=== PATIENT | male | born 1965 | race Caucasian/White ===

== ENCOUNTER → 2017-04-20 11:37 | Outpatient (REF) | payer MEDICAID, SELFPAY ==
[2017-04-20 16:00] LABS: Microscopic, Urine URINE MICROSCOPIC (MICROSCOPIC)
[2017-04-20 16:42] LABS: Appearance,Urine CLEAR (Clear); Bilirubin,Urine Negative (Negative); Blood, Urine Negative (Negative); Color,Urine YELLOW (Yellow); Glucose,Urine (UA) Negative (Negative); Ketones,Urine Negative (Negative); Leukocyte Esterase,Urine Negative (Negative); Nitrate,Urine Negative (Negative); PH,Urine 6.5 (5.0-8.5); Protein,Urine Negative (Negative); Urobilinogen,Urine 0.2 EU/dl (0.2)
[2017-04-20 16:56] LABS: Amorphous Sediment,Urine 1+ /lpf; Bacteria,Urine Trace /lpf; RBC,Urine Occasional #/hpf (0-3); WBC,Urine Occasional #/hpf (0-3)
[2017-04-22 12:34] LABS: PSA, Free 0.07 ng/mL; Prostate Specific Ag 0.2 ng/mL (0.0-4.0)
== END ==
LOC: LAB 11:37
PROVIDERS: Visit Provider Emergency Medicine
DX: R35.0 Frequency of micturition (principal)
CPT/HCPCS: 81001; 84153; 84154; 87086; 87088; 87186

== ENCOUNTER → 2017-05-17 09:39 | Outpatient (CLI) | payer MEDICAID, SELFPAY ==
[2017-05-17 11:27] VITALS: PULSE 74; PULSE 79
[2017-05-17 11:28] VITALS: BP 140/82; BP 170/98; PULSE 72; PULSE 86; RESP 18; RESP 26; O2SAT 88; O2SAT 91
== END ==
PROVIDERS: PCP Emergency Medicine; Visit Provider Internal Medicine
DX: J44.9 Chronic obstructive pulmonary disease, unspecified (principal)
CPT/HCPCS: 94060; 94618; 94640; 94726; 94729

== ENCOUNTER → 2017-05-18 10:04 | Outpatient (REF) | payer MEDICAID, SELFPAY ==
[2017-05-18 15:00] LABS: Amphetamine/Metha Screen,Urine Negative ng/mL (<1000); Barbiturates Screen,Urine Negative ng/mL (<200); Benzodiazepines Screen,Urine Negative ng/mL (200); Cannabinoid Screen,Urine Negative ng/mL (<50); Cocaine Screen,Urine Negative ng/g (<300); Methadone Screen,Urine Negative ng/mL (<300); Opiate Screen,Urine Positive ng/mL (<300); Phencyclidine Screen,Urine Negative ng/mL (<25)
== END ==
LOC: LAB 10:04
PROVIDERS: Visit Provider Emergency Medicine
DX: Z79.899 Other long term (current) drug therapy (principal)
CPT/HCPCS: 80305

== ENCOUNTER → 2017-06-16 13:59 | Outpatient (REF) | payer MEDICAID, SELFPAY ==
[2017-06-18 19:27] LABS: Amphetamine/Metha Screen,Urine Negative ng/mL (<1000); Barbiturates Screen,Urine Negative ng/mL (<200); Benzodiazepines Screen,Urine Negative ng/mL (200); Cannabinoid Screen,Urine Negative ng/mL (<50); Cocaine Screen,Urine Negative ng/g (<300); Methadone Screen,Urine Negative ng/mL (<300); Opiate Screen,Urine Positive ng/mL (<300); Phencyclidine Screen,Urine Negative ng/mL (<25)
== END ==
LOC: LAB 13:59
PROVIDERS: Visit Provider Emergency Medicine
DX: Z79.899 Other long term (current) drug therapy (principal)
CPT/HCPCS: 80305

== ENCOUNTER → 2017-06-22 09:48 | Outpatient (POV) | payer MEDICAID, SELFPAY | PROVIDERS: PCP Emergency Medicine; Visit Provider Internal Medicine | DX: Z00.00 Encounter for general adult medical examination without abnormal findings (principal) ==

== ENCOUNTER → 2017-07-16 11:29 | Outpatient (REF) | payer MEDICAID, SELFPAY ==
[2017-07-16 14:15] LABS: Amphetamine/Metha Screen,Urine Negative ng/mL (<1000); Barbiturates Screen,Urine Negative ng/mL (<200); Benzodiazepines Screen,Urine Negative ng/mL (200); Cannabinoid Screen,Urine Negative ng/mL (<50); Cocaine Screen,Urine Negative ng/g (<300); Methadone Screen,Urine Negative ng/mL (<300); Opiate Screen,Urine Positive ng/mL (<300); Phencyclidine Screen,Urine Negative ng/mL (<25)
== END ==
LOC: LAB 11:29
PROVIDERS: Visit Provider Emergency Medicine
DX: Z79.899 Other long term (current) drug therapy (principal)
CPT/HCPCS: 80305

== ENCOUNTER → 2017-07-22 12:51 | Outpatient (CLI) | payer MEDICAID, SELFPAY ==
--- NOTE | 2017-07-22 13:00 | XR_ITS ---
XR foot wt bearing LT 3V HISTORY: Left foot pain ITS.REASON: pain ORDERING PHYSICIAN: Vane Jade DPM PATIENT AGE: 52 years COMPARISON: 10/03/2015 FINDINGS: No fracture or dislocation. No lytic or blastic change. There is normal mineralization.. Mild osteoarthritic changes are present at the first metatarsophalangeal joint. Normal alignment. IMPRESSION: Mild osteoarthritis first metatarsophalangeal joint slightly progressed when compared to the previous exam otherwise negative left foot
--- NOTE | 2017-07-22 13:00 | XR_ITS ---
XR foot wt bearing RT 3V HISTORY: Right foot pain ITS.REASON: pain ORDERING PHYSICIAN: Vane Jade DPM PATIENT AGE: 52 years COMPARISON: 10/03/2015 FINDINGS: There are moderate osteoarthritic changes of the first metatarsophalangeal joint. Hypertrophic changes are present dorsally at the first metatarsophalangeal joint slightly more extensive than when compared to the previous exam. Normal alignment. IMPRESSION: Osteoarthritic changes of the first metatarsophalangeal joint with bony hypertrophic change slightly worse when compared to the previous exam
== END ==
PROVIDERS: Visit Provider Podiatrist
DX: M79.671 Pain in right foot (principal); M79.672 Pain in left foot
CPT/HCPCS: 73630

== ENCOUNTER → 2017-08-13 09:24 | Outpatient (CLI) | payer MEDICAID, SELFPAY ==
[2017-08-13 14:01] LABS: Amphetamine/Metha Screen,Urine Negative ng/mL (<1000); Barbiturates Screen,Urine Negative ng/mL (<200); Benzodiazepines Screen,Urine Negative ng/mL (200); Cannabinoid Screen,Urine Negative ng/mL (<50); Cocaine Screen,Urine Negative ng/g (<300); Methadone Screen,Urine Negative ng/mL (<300); Opiate Screen,Urine Positive ng/mL (<300); Phencyclidine Screen,Urine Negative ng/mL (<25)
== END ==
PROVIDERS: Visit Provider Emergency Medicine
DX: Z79.899 Other long term (current) drug therapy (principal)
CPT/HCPCS: 80305

== ENCOUNTER → 2017-09-13 10:04 | Outpatient (REF) | payer MEDICAID, SELFPAY ==
[2017-09-13 14:18] LABS: Amphetamine/Metha Screen,Urine Negative ng/mL (<1000); Barbiturates Screen,Urine Negative ng/mL (<200); Benzodiazepines Screen,Urine Negative ng/mL (<200); Cannabinoid Screen,Urine Negative ng/mL (<50); Cocaine Screen,Urine Negative ng/mL (<300); Methadone Screen,Urine Negative ng/mL (<300); Opiate Screen,Urine Positive ng/mL (<300); Phencyclidine Screen,Urine Negative ng/mL (<25)
== END ==
LOC: LAB 10:04
PROVIDERS: Visit Provider Emergency Medicine
DX: Z79.899 Other long term (current) drug therapy (principal)
CPT/HCPCS: 80305

== ENCOUNTER → 2017-10-06 09:32 | Outpatient (REF) | payer MEDICAID, SELFPAY ==
[2017-10-06 13:27] LABS: Basophils # 0.1 K/mm3 (0-0.2); Basophils % 0.5 % (0.1-2.0); Eosinophils # 0.2 K/mm3 (0.0-0.4); Eosinophils % 1.7 % (0.1-12.0); Hematocrit 50.9 % (42.0-52.0); Hemoglobin 16.4 g/dL (14.1-18.0); Lymphocytes # 2.8 K/mm3 (0.7-4.5); Lymphocytes % 28.4 K/mm3 (10-50); Mean Corpuscular HGB Conc 32.2 g/dL (31.8-35.4); Mean Corpuscular Volume 99.2 fl (80-94); Mean Platelet Volume 8.2 fl (7.4-10.4); Monocytes # 0.6 K/mm3 (0.1-1.0); Monocytes % 5.9 % (1.7-9.3); Neutrophils # 6.3 K/mm3 (1.8-7.8); Neutrophils % 63.6 % (37.0-80.0); Platelet Count 233 K/mm3 (142-424); Red Blood Count 5.13 M/mm3 (4.60-6.20); Red Cell Distribution Width 15.1 % (11.5-17.5); White Blood Count 9.9 K/mm3 (4.8-10.8)
[2017-10-06 13:35] LABS: Anion Gap 10.4 mEq/L (5-15); Blood Urea Nitrogen 15 mg/dL (7-18); Calcium 8.9 mg/dL (8.5-10.1); Carbon Dioxide 31 mmol/L (21.0-32.0); Chloride 103 mmol/L (98-107); Creatinine,Serum 1.01 mg/dL (0.70-1.30); Estimated Glomerular Filt Rate 78 ml/min (>60); GFR (African American) 95 ML/MIN (>60); Glucose 172 mg/dL (74-106); Potassium 4.4 mmoL/L (3.5-5.1); Sodium 140 mmol/L (136-145)
[2017-10-06 14:03] LABS: Amphetamine/Metha Screen,Urine Negative ng/mL (<1000); Barbiturates Screen,Urine Negative ng/mL (<200); Benzodiazepines Screen,Urine Negative ng/mL (<200); Cannabinoid Screen,Urine Negative ng/mL (<50); Cocaine Screen,Urine Negative ng/mL (<300); Methadone Screen,Urine Negative ng/mL (<300); Opiate Screen,Urine Positive ng/mL (<300); Phencyclidine Screen,Urine Negative ng/mL (<25)
== END ==
LOC: LAB 09:32
PROVIDERS: Visit Provider Emergency Medicine
DX: M54.5 Low back pain (principal); R53.83 Other fatigue; R60.9 Edema, unspecified; Z79.899 Other long term (current) drug therapy
CPT/HCPCS: 80048; 80305; 83880; 85025

== ENCOUNTER → 2017-11-16 09:18 | Outpatient (REF) | payer MEDICAID, SELFPAY ==
[2017-11-16 13:55] LABS: Hemoglobin A1C 6.4 % (0.0-7.0)
[2017-11-16 14:32] LABS: Amphetamine/Metha Screen,Urine Negative ng/mL (<1000); Barbiturates Screen,Urine Negative ng/mL (<200); Benzodiazepines Screen,Urine Negative ng/mL (<200); Cannabinoid Screen,Urine Negative ng/mL (<50); Cocaine Screen,Urine Negative ng/mL (<300); Methadone Screen,Urine Negative ng/mL (<300); Opiate Screen,Urine Negative ng/mL (<300); Phencyclidine Screen,Urine Negative ng/mL (<25)
[2017-11-17 10:24] LABS: Folate 10.7 ng/mL (>3.0); Vitamin B12 249 pg/mL (232-1245)
== END ==
LOC: LAB 09:18
PROVIDERS: Physician Assistant; Visit Provider Emergency Medicine
DX: Z79.899 Other long term (current) drug therapy (principal); R73.9 Hyperglycemia, unspecified; R79.89 Other specified abnormal findings of blood chemistry
CPT/HCPCS: 80305; 82607; 82746; 83036

== ENCOUNTER → 2017-12-15 10:17 | Outpatient (REF) | payer MEDICAID, SELFPAY ==
[2017-12-15 13:48] LABS: Amphetamine/Metha Screen,Urine Negative ng/mL (<1000); Barbiturates Screen,Urine Negative ng/mL (<200); Benzodiazepines Screen,Urine Negative ng/mL (<200); Cannabinoid Screen,Urine Negative ng/mL (<50); Cocaine Screen,Urine Negative ng/mL (<300); Methadone Screen,Urine Negative ng/mL (<300); Opiate Screen,Urine Negative ng/mL (<300); Phencyclidine Screen,Urine Negative ng/mL (<25)
[2017-12-22 07:28] LABS: Opiates Negative ng/mL (Cutoff=100)
== END ==
LOC: LAB 10:17
PROVIDERS: Visit Provider Emergency Medicine
DX: Z79.899 Other long term (current) drug therapy (principal)
CPT/HCPCS: 80305; 80361; G0480

== ENCOUNTER → 2018-01-17 13:47 | Outpatient (CLI) | payer MEDICAID, SELFPAY ==
[2018-01-17 15:50] LABS: Amphetamine/Metha Screen,Urine Negative ng/mL (<1000); Barbiturates Screen,Urine Negative ng/mL (<200); Benzodiazepines Screen,Urine Negative ng/mL (<200); Cannabinoid Screen,Urine Negative ng/mL (<50); Cocaine Screen,Urine Negative ng/mL (<300); Methadone Screen,Urine Negative ng/mL (<300); Opiate Screen,Urine Positive ng/mL (<300); Phencyclidine Screen,Urine Negative ng/mL (<25)
== END ==
PROVIDERS: Visit Provider Emergency Medicine
DX: Z79.899 Other long term (current) drug therapy (principal)
CPT/HCPCS: 80305

== ENCOUNTER → 2018-02-15 13:21 | Outpatient (CLI) | payer MEDICAID, SELFPAY ==
[2018-02-15 14:25] LABS: Amphetamine/Metha Screen,Urine Negative ng/mL (<1000); Barbiturates Screen,Urine Negative ng/mL (<200); Benzodiazepines Screen,Urine Negative ng/mL (<200); Cannabinoid Screen,Urine Negative ng/mL (<50); Cocaine Screen,Urine Negative ng/mL (<300); Methadone Screen,Urine Negative ng/mL (<300); Opiate Screen,Urine Positive ng/mL (<300); Phencyclidine Screen,Urine Negative ng/mL (<25)
== END ==
PROVIDERS: Visit Provider Emergency Medicine
DX: M54.9 Dorsalgia, unspecified (principal)
CPT/HCPCS: 80305

== ENCOUNTER → 2018-03-18 13:38 | Outpatient (CLI) | payer MEDICAID, SELFPAY ==
[2018-03-18 16:52] LABS: Amphetamine/Metha Screen,Urine Negative ng/mL (<1000); Barbiturates Screen,Urine Negative ng/mL (<200); Benzodiazepines Screen,Urine Negative ng/mL (<200); Cannabinoid Screen,Urine Negative ng/mL (<50); Cocaine Screen,Urine Negative ng/mL (<300); Methadone Screen,Urine Negative ng/mL (<300); Opiate Screen,Urine Positive ng/mL (<300); Phencyclidine Screen,Urine Negative ng/mL (<25)
== END ==
PROVIDERS: Visit Provider Emergency Medicine
DX: Z79.899 Other long term (current) drug therapy (principal)
CPT/HCPCS: 80305

== ENCOUNTER → 2018-05-13 16:09 | Outpatient (CLI) | payer MEDICAID, SELFPAY ==
[2018-05-13 18:09] LABS: Amphetamine/Metha Screen,Urine Negative ng/mL (<1000); Barbiturates Screen,Urine Negative ng/mL (<200); Benzodiazepines Screen,Urine Negative ng/mL (<200); Cannabinoid Screen,Urine Negative ng/mL (<50); Cocaine Screen,Urine Negative ng/mL (<300); Methadone Screen,Urine Negative ng/mL (<300); Opiate Screen,Urine Positive ng/mL (<300); Phencyclidine Screen,Urine Negative ng/mL (<25)
== END ==
PROVIDERS: Visit Provider Emergency Medicine
DX: Z79.899 Other long term (current) drug therapy (principal)
CPT/HCPCS: 80305

== ENCOUNTER → 2018-06-08 09:27 | Outpatient (CLI) | payer MEDICAID, SELFPAY ==
--- NOTE | 2018-06-08 09:32 | US_ITS ---
US Arterial Ankle Brachial Ind History: ITS.REASON: leg pain, claudication, smoker, hypertension ORDERING PHYSICIAN: Teofilo Villafueret MD PATIENT AGE: 53 years TECHNIQUE: Segmental pressures obtained of both right and left leg. These are compared to brachial blood pressure to yield index at each level sampled including summary MERLYN. The data sheets from the procedure are available in PACS FINDINGS Rest study only performed today No prior studies available for comparison. Blood pressures reported are in millimeters mercury. RIGHT LEG MERLYN = 0.95. RIGHT LEG TBI=0.6 Brachial BP: 141 Thigh BP: 140 Calf BP: 130 Ankle PT: 134 Ankle DP : 141 Digit =78 LEFT LEG MERLYN = 0.91 LEFT LEG TBI= 0.8 Brachial BPD: 137 Thigh BP: 137 Calf BP: 130 Ankle PT:129 Ankle DP: 129 Digit = 108 Pulses and waveforms: Normal IMPRESSION: The ABIs as reported above are within normal limits. Waveforms and pulses are also unremarkable.
== END ==
PROVIDERS: PCP Emergency Medicine; Visit Provider Internal Medicine
DX: M79.604 Pain in right leg (principal); R06.02 Shortness of breath; I82.409 Acute embolism and thrombosis of unspecified deep veins of unspecified lower extremity; J44.9 Chronic obstructive pulmonary disease, unspecified; E66.9 Obesity, unspecified; G47.9 Sleep disorder, unspecified; G62.9 Polyneuropathy, unspecified; Z72.0 Tobacco use
CPT/HCPCS: 93922

== ENCOUNTER → 2018-07-05 09:48 | Outpatient (POV) | payer MEDICAID, SELFPAY | PROVIDERS: Visit Provider Internal Medicine | DX: Z00.00 Encounter for general adult medical examination without abnormal findings (principal) ==

== ENCOUNTER → 2018-07-12 09:33 | Outpatient (CLI) | payer MEDICAID, SELFPAY ==
--- NOTE | 2018-07-12 09:43 | XR_ITS ---
XR chest 2V HISTORY: Shortness of breath, smoker, COPD ITS.REASON: sob ORDERING PHYSICIAN: Filomena Salinas APRN PATIENT AGE: 53 years COMPARISON: 06/07/2016 FINDINGS: The cardiomediastinal silhouette and pulmonary vascularity are within normal limits. Hyperinflation with attenuation of the peripheral pulmonary vessels consistent with COPD. No lobar consolidation or collapse. There is an old right sixth rib fracture. IMPRESSION: COPD, no change with no acute finding
[2018-07-15 08:01] LABS: Antinuclear Antibodies, IFA Positive (.)
[2018-07-15 09:29] LABS: PTT-LA 40.9 sec (0.0-51.9); dRVVT 84.8 sec (0.0-47.0); dRVVT Confirm 1.7 ratio (0.8-1.2); dRVVT Mix 57.5 sec (0.0-47.0)
[2018-07-15 14:41] LABS: Lupus Reflex Interpretation Comment: (.)
== END ==
PROVIDERS: PCP Emergency Medicine; Visit Provider Nurse Practitioner Family
DX: I82.409 Acute embolism and thrombosis of unspecified deep veins of unspecified lower extremity (principal); R06.02 Shortness of breath
CPT/HCPCS: 36415; 71046; 85613; 86038

== ENCOUNTER → 2018-07-13 13:33 | Outpatient (CLI) | payer MEDICAID, SELFPAY ==
[2018-07-13 15:15] LABS: Amphetamine/Metha Screen,Urine Negative ng/mL (<1000); Barbiturates Screen,Urine Negative ng/mL (<200); Benzodiazepines Screen,Urine Negative ng/mL (<200); Cannabinoid Screen,Urine Negative ng/mL (<50); Cocaine Screen,Urine Negative ng/mL (<300); Methadone Screen,Urine Negative ng/mL (<300); Opiate Screen,Urine Negative ng/mL (<300); Phencyclidine Screen,Urine Negative ng/mL (<25)
[2018-07-23 09:12] LABS: Opiates Negative ng/mL (Cutoff=100)
== END ==
PROVIDERS: Visit Provider Emergency Medicine
DX: M54.9 Dorsalgia, unspecified (principal)
CPT/HCPCS: 80305; 80361; G0480

== ENCOUNTER → 2018-09-09 14:28 | Outpatient (CLI) | payer MEDICAID, SELFPAY ==
[2018-09-09 16:39] LABS: Amphetamine/Metha Screen,Urine Negative ng/mL (<1000); Barbiturates Screen,Urine Negative ng/mL (<200); Benzodiazepines Screen,Urine Negative ng/mL (<200); Cannabinoid Screen,Urine Negative ng/mL (<50); Cocaine Screen,Urine Negative ng/mL (<300); Methadone Screen,Urine Negative ng/mL (<300); Opiate Screen,Urine Negative ng/mL (<300); Phencyclidine Screen,Urine Negative ng/mL (<25)
== END ==
PROVIDERS: Visit Provider Emergency Medicine
DX: Z79.899 Other long term (current) drug therapy (principal)
CPT/HCPCS: 80305

== ENCOUNTER → 2018-11-07 14:08 | Outpatient (CLI) | payer MEDICAID, SELFPAY ==
[2018-11-07 15:08] LABS: Amphetamine/Metha Screen,Urine Negative ng/mL (<1000); Barbiturates Screen,Urine Negative ng/mL (<200); Benzodiazepines Screen,Urine Negative ng/mL (<200); Cannabinoid Screen,Urine Negative ng/mL (<50); Cocaine Screen,Urine Negative ng/mL (<300); Methadone Screen,Urine Negative ng/mL (<300); Opiate Screen,Urine Positive ng/mL (<300); Phencyclidine Screen,Urine Negative ng/mL (<25)
== END ==
PROVIDERS: Visit Provider Emergency Medicine
DX: Z79.891 Long term (current) use of opiate analgesic (principal)
CPT/HCPCS: 80305

== ENCOUNTER → 2019-03-20 14:59 | Outpatient (CLI) | payer MEDICAID, SELFPAY ==
[2019-03-20 16:55] LABS: Amphetamine/Metha Screen,Urine Negative ng/mL (<1000); Barbiturates Screen,Urine Negative ng/mL (<200); Benzodiazepines Screen,Urine Negative ng/mL (<200); Cannabinoid Screen,Urine Negative ng/mL (<50); Cocaine Screen,Urine Negative ng/mL (<300); Methadone Screen,Urine Negative ng/mL (<300); Opiate Screen,Urine Negative ng/mL (<300); Phencyclidine Screen,Urine Negative ng/mL (<25)
== END ==
PROVIDERS: Visit Provider Emergency Medicine
DX: Z79.899 Other long term (current) drug therapy (principal)
CPT/HCPCS: 80305

== ENCOUNTER → 2019-05-03 13:36 | Outpatient (CLI) | payer MEDICAID, SELFPAY ==
[2019-05-03 19:36] LABS: Potassium 5.2 mmoL/L (3.5-5.1); Sodium 121 mmol/L (136-145)
[2019-05-03 19:39] LABS: Alanine Aminotransferase 39 U/L (12-78); Albumin Level 3.8 g/dl (3.5-5.0); Albumin/Globulin Ratio 1.4 (1.1-1.8); Alkaline Phosphatase 202 U/L (38-126); Anion Gap 18.2 mEq/L (5-15); Aspartate Amino Transferase 28 U/L (17-59); Bilirubin,Total 0.7 mg/dl (0.2-1.3); Blood Urea Nitrogen 24 mg/dl (9-20); Calcium 9.7 mg/dl (8.4-10.2); Carbon Dioxide 34 mmol/L (22.0-30.0); Estimated Glomerular Filt Rate 71 ml/min (>60); GFR (African American) 85 ML/MIN (>60); Globulin 2.7 g/dL (1.3-3.2); Total Protein,Serum 6.5 g/dl (6.3-8.2)
[2019-05-03 20:34] LABS: Chloride 74 mmol/L (98-107); Hemoglobin A1C > 14.0 % (4.0-6.0)
[2019-05-03 20:36] LABS: Glucose 1172 mg/dl (74-100)
[2019-05-03 21:09] LABS: Basophils # 0.1 K/mm3 (0-0.2); Basophils % 0.9 % (0.1-2.0); Eosinophils # 0.1 K/mm3 (0.0-0.4); Eosinophils % 0.8 % (0.1-12.0); Hemoglobin 17.1 g/dL (14.1-18.0); Lymphocytes # 2.1 K/mm3 (0.7-4.5); Lymphocytes % 31.9 % (10-50); Mean Corpuscular HGB Conc 28.5 g/dL (31.8-35.4); Mean Corpuscular Hemoglobin 30.7 pg (27.0-31.2); Mean Corpuscular Volume 107.7 fl (80-94); Mean Platelet Volume 10.6 fl (7.4-10.4); Monocytes # 0.4 K/mm3 (0.1-1.0); Monocytes % 6.1 % (1.7-9.3); Neutrophils % 60.3 % (37.0-80.0); Platelet Count 201 K/mm3 (142-424); Red Blood Count 5.59 M/mm3 (4.60-6.20); Red Cell Distribution Width 13.9 % (11.5-17.5); White Blood Count 6.7 K/mm3 (4.8-10.8)
[2019-05-03 21:16] LABS: Hematocrit 60.2 % (42.0-52.0)
== END ==
PROVIDERS: Visit Provider Emergency Medicine
DX: E66.3 Overweight (principal)
CPT/HCPCS: 36415; 80053; 83036; 85025

== ENCOUNTER 2019-05-04 11:28 | Observation (INO) ==
[2019-05-04 12:00] LABS: Basophils # 0.1 K/mm3 (0-0.2); Basophils % 0.7 % (0.1-2.0); Eosinophils # 0.1 K/mm3 (0.0-0.4); Eosinophils % 1.8 % (0.1-12.0); Hematocrit 57.7 % (42.0-52.0); Lymphocytes # 2.5 K/mm3 (0.7-4.5); Lymphocytes % 32.4 % (10-50); Mean Corpuscular HGB Conc 31.2 g/dL (31.8-35.4); Mean Corpuscular Volume 100.3 fl (80-94); Mean Platelet Volume 8.9 fl (7.4-10.4); Monocytes # 0.3 K/mm3 (0.1-1.0); Neutrophils # 4.6 K/mm3 (1.8-7.8); Neutrophils % 61.1 % (37.0-80.0); Platelet Count 221 K/mm3 (142-424); Red Blood Count 5.75 M/mm3 (4.60-6.20); White Blood Count 7.6 K/mm3 (4.8-10.8)
--- NOTE | 2019-05-04 12:00 | Emergency Department Note ---
ED Disposition Clinical Impression: Diabetes mellitus type 1, uncontrolled, with complications, Hyponatremia Disposition: Admitted as Observation Condition on Discharge: Good - Critical Care Critical Care Time: No Attestation: On 05/04/19, the high probability of a clinically significant, sudden or life threatening deterioration of the following system(s) required my full and direct attention, intervention and personal management. The time I documented below is in addition to time spent performing reported procedures but includes the following listed in this critical care notation. Medical Decision Making - [place] Inquiry Pt receiving controlled substance: No [place] was queried for this patient: No Vital Signs: 05/04/19 11:30 05/04/19 14:00 05/04/19 14:03 Temperature 98.0 F 98.4 F Temperature Source Oral Pulse Rate 78 Pulse Rate [Radial] 75 68 Respiratory Rate 20 22 20 Blood Pressure 142/71 H Blood Pressure [Right Arm] 133/67 113/80 Blood Pressure Mean [Right Arm] 89 91 Blood Pressure Source [Right Arm] Automatic Cuff Automatic Cuff Blood Pressure Position [Right Arm] Sitting Sitting 02 Sat by Pulse Oximetry 98 93 L Oxygen Delivery Method Room Air Room Air - Lab Data Lab Results 05/04/19 11:45: WBC 7.6, RBC 5.75, Hgb 18.0, Hct 57.7 H, MCV 100.3 H, MCH 31.3 H , MCHC 31.2 L, RDW 14.0, Plt Count 221, MPV 8.9, Neut % (Auto) 61.1, Lymph % (Auto) 32.4, [place] % (Auto) 4.0, Eos % (Auto) 1.8, Baso % (Auto) 0.7, Neut # (Auto) 4.6, Lymph # (Auto) 2.5, [place] # (Auto) 0.3, Eos # (Auto) 0.1, Baso # (Auto) 0.1 05/04/19 11:45: Sodium 122 L, Potassium 5.3 H, Chloride 77 L, Carbon Dioxide 34 H, Anion Gap 16.3 H, BUN 25 H, Creatinine 1.10, Estimated Creat Clear 117, Estimated GFR 71, Est GFR ( Amer) 85, Glucose 722 H* D, Calcium 9.9, Total Bilirubin 1.0, AST 47 D, ALT 43, Alkaline Phosphatase 191 H, Total Protein 7.8, Albumin 4.1, Globulin 3.7 H, Albumin/Globulin Ratio 1.1, Acetone Level None detected 05/04/19 12:35: Lactate 1.0 05/04/19 12:48: Urine Color Yellow, Urine Appearance Clear, Urine pH 5.5, Ur Specific [place] 1.010, Urine Protein Negative, Urine Glucose (UA) 3+, Urine Ketones Negative, Urine Blood Negative, Urine Nitrate Negative, Urine Bilirubin Negative, Urine Urobilinogen 0.2, Ur Leukocyte Esterase Negative, Urine RBC None, Urine WBC None, Ur Squamous Epith Cells Occasional, Amorphous Sediment Trace 05/04/19 12:48: Urine Opiates Screen Negative, Urine Methadone Screen Negative, Ur Barbituates Screen Negative, Ur Phencyclidine Scrn Negative, Ur Amphetamines Screen Negative, U Benzodiazepines Scrn Negative, Urine Cocaine Screen Negative, U Marijuana (THC) Screen Negative Result diagrams: 05/04/19 11:45 05/04/19 11:45 Orders (Tests/Meds): ED MEDICATIONS Generic Name Dose Route Start Last Admin Trade Name Sanaz PRN Reason Stop Dose Admin Hydrocodone Bitart/Acetaminophen 1 tab 05/04/19 17:13 [place] 5/325mg Tablet PO 06/03/19 17:12 TIDP PRN PAIN Albuterol Sulfate 1 puffs 05/04/19 18:35 Proventil-Hfa 90mcg/Puff Inhaler IH 06/03/19 18:34 Q6HP PRN Shortness Of Breath Apixaban 5 mg 05/04/19 21:00 Eliquis 5mg Tablet PO 06/03/19 20:59 BID AFTAB Sodium Chloride 1,000 mls @ 100 mls/hr 05/04/19 16:30 05/04/19 16:28 Sod Chlor 0.9% 1000ml Bag IV 05/05/19 02:29 Not Given .Q10H AFTAB Insulin Human Lispro 0 unit 05/04/19 16:30 05/04/19 16:33 Humalog 100 Units/Ml 3ml Vial (Ssi) SQ 06/03/19 16:29 15 unit ACHS AFTAB Administration Protocol Lisinopril 10 mg 05/04/19 21:00 Zestril 10mg Tablet PO 06/03/19 20:59 BID AFTAB Miscellaneous 1 unit 05/04/19 17:13 02/20/20 17:53 Aerochamber/Optihaler MC 05/04/19 17:14 Not Given ONCE ONE Nicotine 21 mg 05/04/19 14:05 05/04/19 15:33 Nicoderm 21mg/24hr Patch TD 06/03/19 14:04 21 mg DAILYP PRN Administration Nicotine Cravings Non-Formulary Medication 1 tab 05/04/19 21:00 Bisoprol/Hydrochlorothiazide [Bisoprolol-Hctz 5-6.25 Mg Tab] PO 06/03/19 20:59 BID AFTAB Non-Formulary Medication 800 mg 05/04/19 21:00 Gabapentin PO 06/03/19 20:59 TID AFTAB Non-Formulary Medication 1 inh 05/04/19 17:15 05/04/19 17:53 Umeclidinium Brm/Vilanterol Tr [Anoro Ellipta 62.5-25 Mcg Inh] INHALATION 06/03/19 17:14 Not Given Q24H AFTAB Ondansetron HCl 4 mg 05/04/19 14:05 Zofran 4mg/2ml Vial IV 06/03/19 14:04 Q8HP PRN Nausea Sodium Chloride 10 ml 05/04/19 14:10 Saline Flush 10ml Syringe IV 06/03/19 14:09 NEEDED PRN Maintain IV Site Spironolactone 25 mg 05/05/19 09:00 Aldactone 25mg Tablet PO 06/04/19 08:59 DAILY AFTAB Discontinued Medications Generic Name Dose Route Start Last Admin Trade Name Freq PRN Reason Stop Dose Admin Sodium Chloride 1,000 mls @ 999 mls/hr 05/04/19 12:00 05/04/19 11:58 Sod Chlor 0.9% 1000ml Bag IV 05/04/19 13:00 999 mls/hr .Q1H1M AFTAB Administration Sodium Chloride 1,000 mls @ 999 mls/hr 05/04/19 13:30 05/04/19 13:18 Sod Chlor 0.9% 1000ml Bag IV 05/04/19 14:30 999 mls/hr .Q1H1M AFTAB Administration Sodium Chloride 1,000 mls @ 150 mls/hr 05/04/19 14:05 05/04/19 15:34 Sod Chlor 0.9% 1000ml Bag IV 05/04/19 20:09 150 mls/hr .Q6H40M AFTAB Administration ORDERS Category Date Time Status Complete Blood Count Auto Diff AMLAB Lab 05/05/19 06:00 Ordered Comprehensive Metabolic Panel AMLAB Lab 05/05/19 06:00 Ordered Lactic Acid AMLAB Lab 05/05/19 06:00 Ordered Lipid Panel AMLAB Lab 05/05/19 06:00 Ordered Magnesium AMLAB Lab 05/05/19 06:00 Ordered Phosphorous AMLAB Lab 05/05/19 06:00 Ordered General Adult HPI - General Chief complaint: Recheck/Abnormal Lab/Rx Stated complaint: labs that came back yesterday and Dr. Wharton reque Time Seen by Provider: 05/04/19 11:56 Mode of Arrival: Ambulatory Limitations: No Limitations Description of Symptoms (Recalled from ER Triage Doc. by RN): States he went to the eye doctor yesterday because his vision has gotten significantly worse in the past year. Eye doctor requested patient have some labs done and had those done yesterday. Dr. Wharton's office called and requested patient to come to the emergency room related to abnormal labs. - History of Present Illness HPI narrative: 53-year old male, he went to the eye doctor yesterday because of significant deterioration on his vision in the past year. 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 He recommended to do blood test which was done yesterday. He said he had a blood test yesterday and his glucose was elevated so his primary care physician Dr. Wharton asked him to come to the emergency room for further evaluation. According to the labs yestewrday his glucose level was 1100. He said he has been feeling thirsty all the time and drinking water. He said he noticed weight loss recently. He said diabetes runs in the family. He denied any chest pain. He denied any abdominal pain. History of hypertension and COPD and chronic pain syndrome. He is taking Eliquis as a blood thinner because she had multiple blood clots involving upper and lower extremities. He has been on blood thinner for the past 3 years. He denied any history of coronary artery disease. He smokes 1 pack/day and he drinks alcohol about twice a week. He is currently on disability because of COPD and blood clots and extremities and chronic pain. - Related Data Home Medications Medication Instructions Recorded Confirmed albuterol sulfate 90 mcg/actuation 3 puff INHALATION Q6HP PRN g 03/24/17 05/04/19 aerosol inhaler umeclidinium 62.5 mcg-vilanterol 1 inh INHALATION Q24H 03/24/17 05/04/19 25 mcg/actuation powdr for inhalation Apixaban [Eliquis] 5 mg PO BID 05/04/19 05/04/19 Aspirin [Low Dose Aspirin EC] 81 mg PO DAILY 05/04/19 05/04/19 Bisoprol/Hydrochlorothiazide 1 tab PO BID 05/04/19 05/04/19 [Bisoprolol-Hctz 5-6.25 mg Tab] Fluticasone Propionate 50 mcg INTRANASAL DAILY 05/04/19 05/04/19 Furosemide [Furosemide 20mg Tab] 20 mg PO DAILY 05/04/19 05/04/19 Gabapentin 800 mg PO TID 05/04/19 05/04/19 Hydrocodone/Acetaminophen [[place]] 1 tab PO TIDP PRN 05/04/19 05/04/19 Spironolactone [Spironolactone 25 mg PO DAILY 05/04/19 05/04/19 25mg Tablet] lisinopriL [Prinivil 10mg Tablet] 10 mg PO BID 05/04/19 05/04/19 Allergies Allergy/AdvReac Type Severity Reaction Status Date / Time No Known Allergies Allergy Verified 03/20/19 10:10 [facility] History - Hepatitis A Screen Drug use history?: No High risk sexual behaviors?: No History of sexually transmitted infection?: No Currently employed?: No Childcare worker?: No Do you have indoor plumbing?: Yes Do you have electricity?: Yes Attestation statement:: This patient has been screened for Hepatitis A risk factors. I have reviewed the patient's past medical history: Yes Medical History: Reports:: Chronic Obstructive Pulmonary Disease (COPD), Coronary Artery Disease, Deep Vein Thrombosis, Hypertension Denies:: Diabetes Mellitus Type 1, Diabetes Mellitus Type 2 Other Surgeries: Yes: No Previous Surgery, Other Amputation: No Fractures: Yes Comment: lft foot,left hand,cyst removed - Social History Educational Level: Completed High School Smoking Status: Current every day smoker Tobacco Type: cigarettes # Packs/Day (cigarettes): 1 Alcohol Intake: never Alcohol Intake Frequency:: a few times a month Substance Use Type: denies use Occupational Status: other Housing: house Household Members: spouse Family Hx:: Diabetes, Hyperlipidemia, Hypertension ROS Obtained: Yes All systems reviewed & no additional complaints - Constitutional Constitutional: Reports fatigue, Reports malaise, Reports weakness - Eyes Eyes: Reports change in vision, Reports decreased night vision, Reports loss of peripheral vision - ENT Ears, Nose, Mouth, and Throat: Reports system reviewed and no additional complaints, except as docu - Cardiovascular Cardiovascular: Reports system reviewed and no additional complaints, except as docu - Respiratory Respiratory: Yes system reviewed and no additional complaints, except as docu - Gastrointestinal Gastrointestingal: Reports: system reviewed and no additional complaints, except as docu - Genitourinary Male Genitourinary: Reports urinary hesitancy - Musculoskeletal Musculoskeletal: Reports system reviewed and no additional complaints, except as docu - Integumentary/Breasts Skin/Breast: Reports system reviewed and no additional complaints, except as docu - Neurologic Neurologic: Reports system reviewed and no additional complaints, except as docu - Endocrine Endocrine: Reports system reviewed and no additional complaints, except as docu - Hematologic/Lymphatic Henatologic/Lymphatic: Reports system reviewed and no additional complaints, except as docu - Allergic/Immunologic Allergic/Immunologic: Reports system reviewed and no additional complaints, except as docu Physical Exam - General General appearance: alert, in no apparent distress - Head Head exam: atraumatic, normocephalic, normal inspection - Eye Eye exam: Present: normal appearance, PERRL, EOMI - ENT ENT exam: Present: normal exam, normal oropharynx, mucous membranes moist, TM's normal bilaterally, normal external ear exam - Neck Neck exam: Present: normal inspection, full ROM, trachea midline. Absent: meningismus, lymphadenopathy - Chest Chest inspection: Present: normal inspection, symmetric chest wall rise. Absent: tenderness - Respiratory Respiratory exam: Present: normal lung sounds bilaterally. Absent: respiratory distress - Cardiovascular Cardiovascular exam: Present: regular rate, normal rhythm. Absent: JVD - Abdominal Exam Abdominal exam: Present: soft, normal bowel sounds. Absent: distention, tenderness, guarding - Extremities Exam Extremities exam: Present: normal inspection, full ROM, normal capillary refill. Absent: calf tenderness - Back Exam Back exam: Present: normal inspection. Absent: tenderness - Neurological Exam Neurological exam: Present: alert, oriented X3 - Psychiatric Psychiatric exam: Present: normal affect, normal mood - Skin Skin exam: Present: warm, dry, intact, normal color - Lymphatic Lymphatic Findings: no adenopathy
[2019-05-04 12:05] LABS: Sodium 122 mmol/L (136-145)
[2019-05-04 12:08] LABS: Alanine Aminotransferase 43 U/L (12-78); Albumin Level 4.1 g/dl (3.5-5.0); Albumin/Globulin Ratio 1.1 (1.1-1.8); Alkaline Phosphatase 191 U/L (38-126); Anion Gap 16.3 mEq/L (5-15); Blood Urea Nitrogen 25 mg/dl (9-20); Carbon Dioxide 34 mmol/L (22.0-30.0); Globulin 3.7 g/dL (1.3-3.2); Total Protein,Serum 7.8 g/dl (6.3-8.2)
[2019-05-04 12:09] LABS: Calcium 9.9 mg/dl (8.4-10.2)
[2019-05-04 12:10] LABS: Acetone, Serum (Rapid) None Detected (None Detect)
[2019-05-04 12:27] LABS: Chloride 77 mmol/L (98-107)
[2019-05-04 12:32] LABS: Aspartate Amino Transferase 47 U/L (17-59); Glucose 722 mg/dl (74-100)
[2019-05-04 12:54] LABS: Microscopic, Urine URINE MICROSCOPIC (MICROSCOPIC)
[2019-05-04 12:55] LABS: Appearance,Urine CLEAR (Clear); Bilirubin,Urine Negative (Negative); Blood, Urine Negative (Negative); Color,Urine YELLOW (Yellow); Glucose,Urine (UA) 3+ (Negative); Ketones,Urine Negative (Negative); Leukocyte Esterase,Urine Negative (Negative); PH,Urine 5.5 (5.0-8.5); Protein,Urine Negative (Negative); Urobilinogen,Urine 0.2 EU/dl (0.2)
[2019-05-04 13:03] LABS: Amorphous Sediment,Urine Trace /lpf; Squamous Epithelial Cell,Urine Occasional #/hpf (0-5)
[2019-05-04 13:08] LABS: Opiate Screen,Urine Negative ng/ml (<300); Phencyclidine Screen,Urine Negative ng/ml (<25)
[2019-05-04 13:15] LABS: Amphetamine/Metha Screen,Urine Negative ng/ml (<1000)
[2019-05-04 13:16] LABS: Barbiturates Screen,Urine Negative ng/ml (<200)
[2019-05-04 13:17] LABS: Benzodiazepines Screen,Urine Negative ng/ml (<200); Cocaine Screen,Urine Negative ng/ml (<300)
[2019-05-04 13:18] LABS: Methadone Screen,Urine Negative ng/ml (<300)
[2019-05-04 13:19] LABS: Cannabinoid Screen,Urine Negative ng/ml (<50)
--- NOTE | 2019-05-04 14:15 | Pharmacy Consult Notes ---
[facility] VTE Monitoring - Patient Demographics Admission date: 05/04/19 Report Date: 05/04/19 Time: 14:14 Allergies/Adverse Reactions: Patient Allergies No Known Allergies Allergy (Verified 03/20/19 10:10) Height: 1.8 m Weight: 104.326 kg Patient Problems: Current Active Problems Diabetes mellitus type 1, uncontrolled, with complications (Acute) Hyponatremia (Acute) - VTE Risk Labs: VTE Related Lab Results Hgb 18.0 g/dL (14.1-18.0) 05/04/19 11:45 Hct 57.7 % (42.0-52.0) H 05/04/19 11:45 Plt Count 221 K/mm3 (142-424) 05/04/19 11:45 BUN 25 mg/dl (9-20) H 05/04/19 11:45 Creatinine 1.10 mg/dl (0.66-1.25) 05/04/19 11:45 Estimated Creat Clear 117 mL/min (50-200) 05/04/19 11:45 - Prophylaxis VTE Prophylaxis Ordered?: Yes Types of VTE Prophylaxis: TEDS Knee High Location of Applied Device: Bilateral Lower Extremeties Pharmacologic Type: Other (Xarelto)
[2019-05-05 06:17] LABS: Basophils % 0.4 % (0.1-2.0); Eosinophils # 0.2 K/mm3 (0.0-0.4); Hematocrit 53.2 % (42.0-52.0); Hemoglobin 16.9 g/dL (14.1-18.0); Lymphocytes # 3.4 K/mm3 (0.7-4.5); Lymphocytes % 39.2 % (10-50); Mean Corpuscular HGB Conc 31.7 g/dL (31.8-35.4); Mean Corpuscular Volume 97.3 fl (80-94); Mean Platelet Volume 8.7 fl (7.4-10.4); Monocytes # 0.3 K/mm3 (0.1-1.0); Monocytes % 3.1 % (1.7-9.3); Neutrophils # 4.8 K/mm3 (1.8-7.8); Neutrophils % 55.3 % (37.0-80.0); Platelet Count 188 K/mm3 (142-424); Red Blood Count 5.47 M/mm3 (4.60-6.20); White Blood Count 8.7 K/mm3 (4.8-10.8)
[2019-05-05 06:19] LABS: Chloride 92 mmol/L (98-107); Sodium 130 mmol/L (136-145)
[2019-05-05 06:21] LABS: Alanine Aminotransferase 45 U/L (12-78); Alkaline Phosphatase 120 U/L (38-126); Aspartate Amino Transferase 47 U/L (17-59); Bilirubin,Total 0.5 mg/dl (0.2-1.3); Blood Urea Nitrogen 21 mg/dl (9-20)
[2019-05-05 06:22] LABS: Albumin Level 3.4 g/dl (3.5-5.0); Albumin/Globulin Ratio 1.2 (1.1-1.8); Anion Gap 10.9 mEq/L (5-15); Carbon Dioxide 31 mmol/L (22.0-30.0); Cholesterol 252 mg/dl (140-200); Globulin 2.9 g/dL (1.3-3.2); Glucose 328 mg/dl (74-100); Phosphorous 3.9 mg/dl (2.5-4.5); Total Protein,Serum 6.3 g/dl (6.3-8.2)
[2019-05-05 07:12] LABS: Calcium 8.8 mg/dl (8.4-10.2)
[2019-05-05 07:13] LABS: Chol/HDL Ratio 12.6 (1-3.5); HDL Cholesterol 20 mg/dl (40-60)
[2019-05-05 09:21] LABS: Triglycerides 1816 mg/dl (30-150)
--- NOTE | 2019-05-05 13:00 | H&P/Discharge Summary ---
General - General Admission date:: 05/04/19 Discharge date: 05/05/19 *Admission Date: 05/04/19 *Chief complaint: elevated glucose *History of present illness: 53-year old male, states he went to the [employer] [place] saw signs of retina diabetic changes. Seen by PCP had labs drawn. His glucose was 1100 so his primary care physician Dr. Engle asked him to come to the emergency room for further evaluation. Pt said he has been feeling thirsty all the time and drinking water. History of hypertension and COPD and chronic pain syndrome. He is taking Eliquis as a blood thinner because she had multiple blood clots involving upper and lower extremities. He has been on blood thinner for the past 3 years. Pt admitted for elevated glucose. [facility] History I have reviewed the patient's past medical history: Yes Medical History: Reports:: Chronic Obstructive Pulmonary Disease (COPD), Coronary Artery Disease, Deep Vein Thrombosis, Diabetes Mellitus Type 2, Hyperlipidemia, Hypertension Denies:: Diabetes Mellitus Type 1 *Have you ever received a pneumonia vaccine?: Yes *Have you received a flu vaccine this season?: Yes Other Surgeries: Yes: No Previous Surgery, Other (FOOT) Amputation: No Fractures: Yes - *Social History Educational Level: Completed High School Smoking Status: Current every day smoker Tobacco Type: cigarettes # Packs/Day (cigarettes): 1 Alcohol Intake: never Alcohol Intake Frequency:: a few times a month Substance Use Type: denies use *Occupational Status:: disabled Housing: house Household Members: spouse *Travel in the last 8 weeks: None Family Hx:: Cancer, Diabetes Review of Systems - Review of Systems Review of systems:: pertinent systems reviewed and negative unless documented below - Constitutional Reports weight loss, Denies body ache(s) - Eyes Denies change in vision - ENT Denies neck pain - *Cardiovascular Denies chest pain with activity - *Respiratory Denies chest congestion - *Gastrointestinal Denies change in bowel habits - *Genitourinary Reports urinary frequency - *Musculoskeletal Denies joint pain - Integumentary/Breasts Denies sensitivity to light - *Neurologic Reports weakness, Denies headache(s) - Psychiatric Denies anxiety - Endocrine Reports increased thirst, Reports increased urination, Denies flushing - Hematologic/Lymphatic Denies easy bruising - Allergic/Immunologic Denies itchy eyes Exam Vital signs and Labs for Last 24 Hours: Temp Pulse Resp BP Pulse Ox 98.0 F 66 18 104/63 L 91 L 05/05/19 08:00 05/05/19 08:00 05/05/19 08:00 05/05/19 08:00 05/05/19 08:00 Laboratory Results - last 24 hr 05/04/19 12:35: Lactate 1.0 05/04/19 12:48: Urine Color Yellow, Urine Appearance Clear, Urine pH 5.5, Ur Specific [place] 1.010, Urine Protein Negative, Urine Glucose (UA) 3+, Urine Ketones Negative, Urine Blood Negative, Urine Nitrate Negative, Urine Bilirubin Negative, Urine Urobilinogen 0.2, Ur Leukocyte Esterase Negative, Urine RBC None, Urine WBC None, Ur Squamous Epith Cells Occasional, Amorphous Sediment Trace 05/04/19 12:48: Urine Opiates Screen Negative, Urine Methadone Screen Negative, Ur Barbituates Screen Negative, Ur Phencyclidine Scrn Negative, Ur Amphetamines Screen Negative, U Benzodiazepines Scrn Negative, Urine Cocaine Screen Negative, U Marijuana (THC) Screen Negative 05/04/19 16:17: POC Glucose 555 H* 05/04/19 20:20: POC Glucose 428 H* 05/05/19 05:20: POC Glucose 339 H* 05/05/19 05:58: WBC 8.7, RBC 5.47, Hgb 16.9, Hct 53.2 H, MCV 97.3 H, MCH 30.8, MCHC 31.7 L, RDW 14.0, Plt Count 188, MPV 8.7, Neut % (Auto) 55.3, Lymph % (Auto) 39.2, [place] % (Auto) 3.1, Eos % (Auto) 2.0, Baso % (Auto) 0.4, Neut # (Auto) 4.8, Lymph # (Auto) 3.4, [place] # (Auto) 0.3, Eos # (Auto) 0.2, Baso # (Auto) 0.0 05/05/19 05:58: Sodium 130 L, Potassium 3.9 D, Chloride 92 L, Carbon Dioxide 31 H, Anion Gap 10.9, BUN 21 H, Creatinine 0.80 D, Estimated Creat Clear 169, Estimated GFR 102, Est GFR ( Amer) 123 D, Glucose 328 H D, Calcium 8.8 D, Phosphorus 3.9, Magnesium 1.8, Total Bilirubin 0.5, AST 47, ALT 45, Alkaline Phosphatase 120, Total Protein 6.3, Albumin 3.4 L D, Globulin 2.9, Albumin/Globulin Ratio 1.2, Triglycerides 1816 H, Cholesterol 252 H, LDL Cholesterol Direct < 30 L, VLDL Cholesterol Not Reportable, HDL Cholesterol 20 L , Cholesterol/HDL Ratio 12.6 H 05/05/19 05:58: Lactate 1.0 05/05/19 10:52: POC Glucose 407 H* I & O for Last 24 hours: Intake & Output 05/03/19 05/04/19 05/05/19 05/06/19 11:59 11:59 11:59 11:59 Intake Total 1230 / 1230 Balance 1230 / 1230 Weight 230 lb 242 lb 8.136 oz - Constitutional no acute distress - *Routine HEENT Exam Head: Present: normocephalic Eye: Present: PERRL ENT: Present: mucous membranes moist - *Routine Neck Exam Present: supple. Absent: lymphadenopathy - *Routine Respiratory Exam Present: CTA bilaterally - *Routine Cardiovascular Exam Present: RRR - *Routine Abdominal Exam Present: soft, normoactive bowel sounds. Absent: tenderness - *Routine Extremities Exam Present: full ROM. Absent: cyanosis, clubbing, edema - *Routine Skin Exam Present: warm. Absent: rash - *Routine Neurological Exam Present: alert, oriented X3 - Routine Psychiatric Exam Present: normal affect Hospital Course Hospital Course: Laboratory Results - last 24 hr 05/04/19 12:48: Urine RBC None, Urine WBC None, Ur Squamous Epith Cells Occasional, Amorphous Sediment Trace 05/04/19 12:48: Urine Opiates Screen Negative, Urine Methadone Screen Negative, Ur Barbituates Screen Negative, Ur Phencyclidine Scrn Negative, Ur Amphetamines Screen Negative, U Benzodiazepines Scrn Negative, Urine Cocaine Screen Negative, U Marijuana (THC) Screen Negative 05/04/19 16:17: POC Glucose 555 H* 05/04/19 20:20: POC Glucose 428 H* 05/05/19 05:20: POC Glucose 339 H* 05/05/19 05:58: WBC 8.7, RBC 5.47, Hgb 16.9, Hct 53.2 H, MCV 97.3 H, MCH 30.8, MCHC 31.7 L, RDW 14.0, Plt Count 188, MPV 8.7, Neut % (Auto) 55.3, Lymph % (Auto) 39.2, [place] % (Auto) 3.1, Eos % (Auto) 2.0, Baso % (Auto) 0.4, Neut # (Auto) 4.8, Lymph # (Auto) 3.4, [place] # (Auto) 0.3, Eos # (Auto) 0.2, Baso # (Auto) 0.0 05/05/19 05:58: Sodium 130 L, Potassium 3.9 D, Chloride 92 L, Carbon Dioxide 31 H, Anion Gap 10.9, BUN 21 H, Creatinine 0.80 D, Estimated Creat Clear 169, Estimated GFR 102, Est GFR ( Amer) 123 D, Glucose 328 H D, Calcium 8.8 D, Phosphorus 3.9, Magnesium 1.8, Total Bilirubin 0.5, AST 47, ALT 45, Alkaline Phosphatase 120, Total Protein 6.3, Albumin 3.4 L D, Globulin 2.9, Albumin/Globulin Ratio 1.2, Triglycerides 1816 H, Cholesterol 252 H, LDL Cholesterol Direct < 30 L, VLDL Cholesterol Not Reportable, HDL Cholesterol 20 L , Cholesterol/HDL Ratio 12.6 H 05/05/19 05:58: Lactate 1.0 05/05/19 10:52: POC Glucose 407 H* iv fluids- insulin, monitor of labs dietary consult- see note will discharge home start on metformin, follow up in office, test glucose bid bring log to appointment, Results Labs on day of discharge: Labs from last 24 hours 05/05/19 05/05/19 05/05/19 10:52 05:58 05:58 WBC RBC Hgb Hct MCV MCH MCHC RDW Plt Count MPV Neut % (Auto) Lymph % (Auto) [place] % (Auto) Eos % (Auto) Baso % (Auto) Neut # (Auto) Lymph # (Auto) [place] # (Auto) Eos # (Auto) Baso # (Auto) Sodium 130 L Potassium 3.9 D Chloride 92 L Carbon Dioxide 31 H Anion Gap 10.9 BUN 21 H Creatinine 0.80 D Estimated Creat Clear 169 Estimated GFR 102 Est GFR ( Amer) 123 D Glucose 328 H D POC Glucose 407 H* Lactate 1.0 Calcium 8.8 D Phosphorus 3.9 Magnesium 1.8 Total Bilirubin 0.5 AST 47 ALT 45 Alkaline Phosphatase 120 Total Protein 6.3 Albumin 3.4 L D Globulin 2.9 Albumin/Globulin Ratio 1.2 Triglycerides 1816 H Cholesterol 252 H LDL Cholesterol Direct < 30 L VLDL Cholesterol Not Reportable HDL Cholesterol 20 L Cholesterol/HDL Ratio 12.6 H Urine Color Urine Appearance Urine pH Ur Specific [place] Urine Protein Urine Glucose (UA) Urine Ketones Urine Blood Urine Nitrate Urine Bilirubin Urine Urobilinogen Ur Leukocyte Esterase Urine RBC Urine WBC Ur Squamous Epith Cells Amorphous Sediment Urine Opiates Screen Urine Methadone Screen Ur Barbituates Screen Ur Phencyclidine Scrn Ur Amphetamines Screen U Benzodiazepines Scrn Urine Cocaine Screen U Marijuana (THC) Screen 05/05/19 05/05/19 05/04/19 05:58 05:20 20:20 WBC 8.7 RBC 5.47 Hgb 16.9 Hct 53.2 H MCV 97.3 H MCH 30.8 MCHC 31.7 L RDW 14.0 Plt Count 188 MPV 8.7 Neut % (Auto) 55.3 Lymph % (Auto) 39.2 [place] % (Auto) 3.1 Eos % (Auto) 2.0 Baso % (Auto) 0.4 Neut # (Auto) 4.8 Lymph # (Auto) 3.4 [place] # (Auto) 0.3 Eos # (Auto) 0.2 Baso # (Auto) 0.0 Sodium Potassium Chloride Carbon Dioxide Anion Gap BUN Creatinine Estimated Creat Clear Estimated GFR Est GFR ( Amer) Glucose POC Glucose 339 H* 428 H* Lactate Calcium Phosphorus Magnesium Total Bilirubin AST ALT Alkaline Phosphatase Total Protein Albumin Globulin Albumin/Globulin Ratio Triglycerides Cholesterol LDL Cholesterol Direct VLDL Cholesterol HDL Cholesterol Cholesterol/HDL Ratio Urine Color Urine Appearance Urine pH Ur Specific [place] Urine Protein Urine Glucose (UA) Urine Ketones Urine Blood Urine Nitrate Urine Bilirubin Urine Urobilinogen Ur Leukocyte Esterase Urine RBC Urine WBC Ur Squamous Epith Cells Amorphous Sediment Urine Opiates Screen Urine Methadone Screen Ur Barbituates Screen Ur Phencyclidine Scrn Ur Amphetamines Screen U Benzodiazepines Scrn Urine Cocaine Screen U Marijuana (THC) Screen 05/04/19 05/04/19 05/04/19 16:17 12:48 12:48 WBC RBC Hgb Hct MCV MCH MCHC RDW Plt Count MPV Neut % (Auto) Lymph % (Auto) [place] % (Auto) Eos % (Auto) Baso % (Auto) Neut # (Auto) Lymph # (Auto) [place] # (Auto) Eos # (Auto) Baso # (Auto) Sodium Potassium Chloride Carbon Dioxide Anion Gap BUN Creatinine Estimated Creat Clear Estimated GFR Est GFR ( Amer) Glucose POC Glucose 555 H* Lactate Calcium Phosphorus Magnesium Total Bilirubin AST ALT Alkaline Phosphatase Total Protein Albumin Globulin Albumin/Globulin Ratio Triglycerides Cholesterol LDL Cholesterol Direct VLDL Cholesterol HDL Cholesterol Cholesterol/HDL Ratio Urine Color Yellow Urine Appearance Clear Urine pH 5.5 Ur Specific [place] 1.010 Urine Protein Negative Urine Glucose (UA) 3+ Urine Ketones Negative Urine Blood Negative Urine Nitrate Negative Urine Bilirubin Negative Urine Urobilinogen 0.2 Ur Leukocyte Esterase Negative Urine RBC None Urine WBC None Ur Squamous Epith Cells Occasional Amorphous Sediment Trace Urine Opiates Screen Negative Urine Methadone Screen Negative Ur Barbituates Screen Negative Ur Phencyclidine Scrn Negative Ur Amphetamines Screen Negative U Benzodiazepines Scrn Negative Urine Cocaine Screen Negative U Marijuana (THC) Screen Negative 05/04/19 12:35 WBC RBC Hgb Hct MCV MCH MCHC RDW Plt Count MPV Neut % (Auto) Lymph % (Auto) [place] % (Auto) Eos % (Auto) Baso % (Auto) Neut # (Auto) Lymph # (Auto) [place] # (Auto) Eos # (Auto) Baso # (Auto) Sodium Potassium Chloride Carbon Dioxide Anion Gap BUN Creatinine Estimated Creat Clear Estimated GFR Est GFR ( Amer) Glucose POC Glucose Lactate 1.0 Calcium Phosphorus Magnesium Total Bilirubin AST ALT Alkaline Phosphatase Total Protein Albumin Globulin Albumin/Globulin Ratio Triglycerides Cholesterol LDL Cholesterol Direct VLDL Cholesterol HDL Cholesterol Cholesterol/HDL Ratio Urine Color Urine Appearance Urine pH Ur Specific [place] Urine Protein Urine Glucose (UA) Urine Ketones Urine Blood Urine Nitrate Urine Bilirubin Urine Urobilinogen Ur Leukocyte Esterase Urine RBC Urine WBC Ur Squamous Epith Cells Amorphous Sediment Urine Opiates Screen Urine Methadone Screen Ur Barbituates Screen Ur Phencyclidine Scrn Ur Amphetamines Screen U Benzodiazepines Scrn Urine Cocaine Screen U Marijuana (THC) Screen - Additional Comments rounded with dr engle all orders per dr engle DS: Diagnosis - Discharge Diagnosis (1) Diabetes Status: Acute Discharge Plan - Patient Discharge Instructions ACTIVITY: Continue current activity DIET: continue same diet Patient Instructions: How to Check Your Blood Glucose, How to Take Care of Your Feet If You Have Diabetes, Type 2 Diabetes, DI for Diabetes Type 2, Taking Care of Your Diabetes When You Are Sick, Diabetes and Alcohol: Caution When Mixing, What to Eat if You Have Diabetes - Follow up Plan Follow up with: Ezequiel Engle MD [Primary Care Provider] - 05/08/19 Disposition: Home, Self-Intermediate Medications: Home Medications Medication Instructions Recorded Confirmed Type albuterol sulfate 90 mcg/actuation 3 puff INHALATION Q6HP PRN g 03/24/17 05/04/19 History aerosol inhaler umeclidinium 62.5 mcg-vilanterol 1 inh INHALATION Q24H 03/24/17 05/04/19 History 25 mcg/actuation powdr for inhalation Apixaban [Eliquis] 5 mg PO BID 05/04/19 05/04/19 History Aspirin [Low Dose Aspirin EC] 81 mg PO DAILY 05/04/19 05/04/19 History Bisoprol/Hydrochlorothiazide 1 tab PO BID 05/04/19 05/04/19 History [Bisoprolol-Hctz 5-6.25 mg Tab] Fluticasone Propionate 50 mcg INTRANASAL DAILY 05/04/19 05/04/19 History Furosemide [Furosemide 20mg Tab] 20 mg PO DAILY 05/04/19 05/04/19 History Gabapentin 800 mg PO TID 05/04/19 05/04/19 History Hydrocodone/Acetaminophen [[place]] 1 tab PO TIDP PRN 05/04/19 05/04/19 History Spironolactone [Spironolactone 25 mg PO DAILY 05/04/19 05/04/19 History 25mg Tablet] lisinopriL [Prinivil 10mg Tablet] 10 mg PO BID 05/04/19 05/04/19 History Metformin HCl [Metformin 1000mg 1,000 mg PO BID 30 Days #60 tab 05/05/19 Rx Tablets] Simvastatin 5 mg PO DAILY 30 Days #30 tab 05/05/19 Rx Prescriptions/Medication Reconciliation: New Simvastatin 5 mg PO DAILY 30 Days #30 tab Metformin HCl [Metformin 1000mg Tablets] 1,000 mg PO BID 30 Days #60 tab Continued albuterol sulfate 90 mcg/actuation aerosol inhaler 3 puff INHALATION Q6HP PRN g PRN Reason: Shortness Of Breath umeclidinium 62.5 mcg-vilanterol 25 mcg/actuation powdr for inhalation 1 inh INHALATION Q24H Spironolactone [Spironolactone 25mg Tablet] 25 mg PO DAILY lisinopriL [Prinivil 10mg Tablet] 10 mg PO BID Gabapentin 800 mg PO TID Furosemide [Furosemide 20mg Tab] 20 mg PO DAILY Fluticasone Propionate 50 mcg INTRANASAL DAILY Bisoprol/Hydrochlorothiazide [Bisoprolol-Hctz 5-6.25 mg Tab] 1 tab PO BID Aspirin [Low Dose Aspirin EC] 81 mg PO DAILY Apixaban [Eliquis] 5 mg PO BID Hydrocodone/Acetaminophen [[place]] 1 tab PO TIDP PRN PRN Reason: PAIN - Problem Reconciliation Problems Reviewed?: Yes
== END 2019-05-05 13:50 | disposition home or self-care (01) ==
LOC: ER 11:28 → 2ND 11:28
PROVIDERS: ADMIT Emergency Medicine; ATTEND Emergency Medicine
CPT/HCPCS: 36415; 80053; 80061; 80305; 81001; 82009; 82962; 83605; 83735; 84100; 85025; 96365; 96376; 99284; G0378

== ENCOUNTER → 2019-05-12 13:29 | Outpatient (CLI) | payer MEDICAID, SELFPAY ==
[2019-05-12 13:56] LABS: Anion Gap 15.7 mEq/L (5-15); Blood Urea Nitrogen 16 mg/dl (9-20); Calcium 9.7 mg/dl (8.4-10.2); Carbon Dioxide 28 mmol/L (22.0-30.0); Chloride 92 mmol/L (98-107); Estimated Glomerular Filt Rate 102 ml/min (>60); GFR (African American) 123 ML/MIN (>60); Potassium 4.7 mmoL/L (3.5-5.1); Sodium 131 mmol/L (136-145)
[2019-05-12 13:59] LABS: Glucose 405 mg/dl (74-100)
== END ==
PROVIDERS: Visit Provider Emergency Medicine
DX: E11.9 Type 2 diabetes mellitus without complications (principal); Z79.84 Long term (current) use of oral hypoglycemic drugs
CPT/HCPCS: 80048

== ENCOUNTER → 2019-09-08 08:45 | Outpatient (CLI) | payer MEDICAID, SELFPAY ==
[2019-09-08 09:33] LABS: Basophils # 0.1 K/mm3 (0-0.2); Basophils % 0.5 % (0.1-2.0); Eosinophils # 0.2 K/mm3 (0.0-0.4); Eosinophils % 1.5 % (0.1-12.0); Hematocrit 51.6 % (42.0-52.0); Hemoglobin 17.1 g/dL (14.1-18.0); Lymphocytes # 3.5 K/mm3 (0.7-4.5); Lymphocytes % 35.3 % (10-50); Mean Corpuscular Hemoglobin 32.5 pg (27.0-31.2); Mean Corpuscular Volume 98.3 fl (80-94); Mean Platelet Volume 7.6 fl (7.4-10.4); Monocytes # 0.6 K/mm3 (0.1-1.0); Monocytes % 5.6 % (1.7-9.3); Neutrophils # 5.6 K/mm3 (1.8-7.8); Neutrophils % 57.1 % (37.0-80.0); Platelet Count 233 K/mm3 (142-424); Red Blood Count 5.25 M/mm3 (4.60-6.20); Red Cell Distribution Width 13.9 % (11.5-17.5); White Blood Count 9.9 K/mm3 (4.8-10.8)
[2019-09-08 09:45] LABS: Chloride 97 mmol/L (98-107)
[2019-09-08 09:46] LABS: Potassium 4.5 mmoL/L (3.5-5.1); Sodium 132 mmol/L (136-145)
[2019-09-08 09:48] LABS: Alanine Aminotransferase 25 U/L (12-78); Alkaline Phosphatase 83 U/L (38-126); Aspartate Amino Transferase 22 U/L (17-59); Bilirubin,Total 0.5 mg/dl (0.2-1.3); Blood Urea Nitrogen 25 mg/dl (9-20); Estimated Glomerular Filt Rate 89 ml/min (>60); GFR (African American) 107 ML/MIN (>60)
[2019-09-08 09:49] LABS: Albumin/Globulin Ratio 1.5 (1.1-1.8); Anion Gap 11.5 mEq/L (5-15); Calcium 9.2 mg/dl (8.4-10.2); Carbon Dioxide 28 mmol/L (22.0-30.0); Chol/HDL Ratio 4.1 (1-3.5); Cholesterol 134 mg/dl (140-200); Globulin 2.6 g/dL (1.3-3.2); Glucose 126 mg/dl (74-100); HDL Cholesterol 33 mg/dl (40-60); Total Protein,Serum 6.6 g/dl (6.3-8.2); Triglycerides 229 mg/dl (30-150); VLDL Cholesterol 46 mg/dL (0-40)
[2019-09-08 10:00] LABS: Direct LDL Cholesterol 79.09 mg/dL (100-129)
[2019-09-08 10:06] LABS: Free T4 (Free Thyroxine) 1.05 ng/dl (0.78-2.19)
[2019-09-08 10:20] LABS: Thyroid Stimulating Hormone 3.64 uIU/mL (0.465-4.68)
[2019-09-08 11:17] LABS: 25-OH Vitamin D, Total 33.3 ng/mL (30-100)
== END ==
PROVIDERS: Visit Provider Emergency Medicine
DX: E10.65 Type 1 diabetes mellitus with hyperglycemia (principal); E10.8 Type 1 diabetes mellitus with unspecified complications; E55.9 Vitamin D deficiency, unspecified
CPT/HCPCS: 36415; 80053; 80061; 82306; 83036; 84439; 84443; 85025

== ENCOUNTER → 2020-03-14 08:50 | Outpatient (CLI) | payer MEDICAID, SELFPAY ==
--- NOTE | 2020-03-14 08:50 | MR_ITS ---
PROCEDURE: MR CERVICAL SPINE WO CON (3D MRI myelogram volume rendering image set included) Referring Doctor: Ezequiel Wharton Patient Age:54Y CLINICAL INDICATION: neck pain . Right arm pain numbness tingling no injury or trauma. COMPARISON: No exams were available for comparison TECHNIQUE: Standard multiplanar multiecho sequences are performed without contrast. 3-D MIP and myelographic images are also rendered and reviewed (3D MR, volume rendering MRI myelogram image set included) FINDINGS: But the cranial cervical junction appears satisfactory.. Intervertebral disc intact and unremarkable at C2/3, C3/4 and C4/5 level Suggestion mild facet arthropathy to the right at C 3/4 with slight increased fatty signal changes about the facets at this level C5/6: Rightward disc protrusion/ broad-based disc herniation most pronounced right paracentral. This effaces the cervical cord midline into the right, with moderately pronounced spinal stenosis, along with right recess and foraminal encroachment.. The disc protrusion effaces and in flattens the cervical cord, at this level With this also note focus of increased T2 signal is seen within the cervical cord at this level reflecting associated myelopathy from the cord compression. Timely neuro surgical consult warranted with this additional observation The patient has a modest volume underlying osseous spinal canal which is further narrowed/compromised due to the disc protrusion at at C5/6 C6/7, only very subtle disc bulge to the right. Negligible only very slightly effaces thecal sac to the right on axial images. Minor right foraminal encroachment. . C7/T1, T1/T2 levels unremarkable with disc intact. Small benign hemangioma C6. Generous volume thyroid noted. Upper normal size IMPRESSION: C5/6. Broad-based rightward disc herniation. Effaces cervical cord midline and right paracentral right. With moderate right foraminal encroachment. Yields moderately pronounced spinal stenosis/. (Note modest volume underlying osseous spinal canal) . Also note focus of increased T2 signal within the cervical cord at this C5/6 level reflecting focus of myelopathy changes within the cervical cord-. Timely neurosurgical consult suggested Dictated by: Evin Branch MD 03/16/2020 11:39 Evin Branch MD in [place] 03/16/2020 11:39
== END ==
PROVIDERS: PCP Emergency Medicine; Visit Provider Emergency Medicine
DX: M54.2 Cervicalgia (principal)
CPT/HCPCS: 72141; 76376

== ENCOUNTER → 2020-05-03 16:03 | Outpatient (CLI) | payer MEDICAID, SELFPAY ==
[2020-05-03 17:15] LABS: Basophils # 0.1 K/mm3 (0-0.2); Basophils % 0.7 % (0.1-2.0); Eosinophils # 0.1 K/mm3 (0.0-0.4); Hemoglobin 17.9 g/dL (14.1-18.0); Lymphocytes # 4.5 K/mm3 (0.7-4.5); Lymphocytes % 44.8 % (10-50); Mean Corpuscular HGB Conc 32.4 g/dL (31.8-35.4); Mean Corpuscular Hemoglobin 32.5 pg (27.0-31.2); Mean Corpuscular Volume 100.2 fl (80-94); Mean Platelet Volume 9.9 fl (7.4-10.4); Monocytes # 0.6 K/mm3 (0.1-1.0); Monocytes % 5.5 % (1.7-9.3); Neutrophils # 4.9 K/mm3 (1.8-7.8); Neutrophils % 47.9 % (37.0-80.0); Platelet Count 273 K/mm3 (142-424); Red Blood Count 5.53 M/mm3 (4.60-6.20); Red Cell Distribution Width 13.4 % (11.5-17.5); White Blood Count 10.1 K/mm3 (4.8-10.8)
[2020-05-03 17:17] LABS: Hematocrit 55.4 % (42.0-52.0)
[2020-05-03 17:23] LABS: Chloride 97 mmol/L (98-107)
[2020-05-03 17:24] LABS: Potassium 4.7 mmoL/L (3.5-5.1); Sodium 137 mmol/L (136-145)
[2020-05-03 17:26] LABS: Alanine Aminotransferase 27 U/L (12-78); Aspartate Amino Transferase 24 U/L (17-59); Blood Urea Nitrogen 20 mg/dl (9-20); Estimated Glomerular Filt Rate 89 ml/min (>60); GFR (African American) 107 ML/MIN (>60)
[2020-05-03 17:27] LABS: Albumin Level 4.8 g/dl (3.5-5.0); Albumin/Globulin Ratio 1.4 (1.1-1.8); Alkaline Phosphatase 94 U/L (38-126); Anion Gap 14.7 mEq/L (5-15); Bilirubin,Total 0.6 mg/dl (0.2-1.3); Calcium 10.2 mg/dl (8.4-10.2); Carbon Dioxide 30 mmol/L (22.0-30.0); Chol/HDL Ratio 3.8 (1-3.5); Cholesterol 179 mg/dl (140-200); Globulin 3.4 g/dL (1.3-3.2); Glucose 104 mg/dl (74-100); HDL Cholesterol 47 mg/dl (40-60); Total Protein,Serum 8.2 g/dl (6.3-8.2); Triglycerides 173 mg/dl (30-150); VLDL Cholesterol 35 mg/dL (0-40)
[2020-05-03 17:43] LABS: Direct LDL Cholesterol 93.62 mg/dL (100-129)
[2020-05-03 18:01] LABS: 25-OH Vitamin D, Total 18.5 ng/mL (30-100)
[2020-05-03 18:02] LABS: Prostate Specific Ag Screen 0.1 ng/ml (0.0-4.0)
[2020-05-03 18:03] LABS: Thyroid Stimulating Hormone 3.52 uIU/mL (0.465-4.68)
[2020-05-03 18:58] LABS: Hemoglobin A1C 5.6 % (4.0-6.0)
[2020-05-03 20:05] LABS: Amphetamine/Metha Screen,Urine Negative ng/ml (<1000)
[2020-05-03 20:06] LABS: Barbiturates Screen,Urine Negative ng/ml (<200); Benzodiazepines Screen,Urine Negative ng/ml (<200)
[2020-05-03 20:08] LABS: Cocaine Screen,Urine Negative ng/ml (<300); Methadone Screen,Urine Negative ng/ml (<300)
[2020-05-03 20:09] LABS: Opiate Screen,Urine Positive ng/ml (<300); Phencyclidine Screen,Urine Negative ng/ml (<25)
[2020-05-03 20:33] LABS: Cannabinoid Screen,Urine Negative ng/ml (<50); Creatinine,Urine Random 40 mg/dL (Not Estab.); Microalbumin < 6.000 mg/L (0-16.7)
== END ==
PROVIDERS: Visit Provider Emergency Medicine
DX: E11.9 Type 2 diabetes mellitus without complications (principal); E55.9 Vitamin D deficiency, unspecified; Z79.899 Other long term (current) drug therapy; Z12.5 Encounter for screening for malignant neoplasm of prostate; Z79.84 Long term (current) use of oral hypoglycemic drugs; F17.210 Nicotine dependence, cigarettes, uncomplicated
CPT/HCPCS: 80053; 80061; 80305; 82043; 82306; 82570; 83036; 84439; 84443; 85025; G0103

== ENCOUNTER → 2020-08-26 13:50 | Outpatient (CLI) | payer MEDICAID, SELFPAY ==
[2020-08-26 15:20] LABS: Amphetamine/Metha Screen,Urine Negative ng/ml (<1000)
[2020-08-26 15:21] LABS: Barbiturates Screen,Urine Negative ng/ml (<200)
[2020-08-26 15:23] LABS: Benzodiazepines Screen,Urine Negative ng/ml (<200)
[2020-08-26 15:24] LABS: Cannabinoid Screen,Urine Negative ng/ml (<50); Cocaine Screen,Urine Negative ng/ml (<300)
[2020-08-26 15:25] LABS: Methadone Screen,Urine Negative ng/ml (<300)
[2020-08-26 15:26] LABS: Opiate Screen,Urine Negative ng/ml (<300); Phencyclidine Screen,Urine Negative ng/ml (<25)
== END ==
PROVIDERS: Visit Provider Emergency Medicine
DX: Z79.891 Long term (current) use of opiate analgesic (principal)
CPT/HCPCS: 80305

== ENCOUNTER 2020-12-08 16:06 | Emergency (ER) | payer MEDICAID, SELFPAY ==
[2020-12-08 16:07] VITALS: BP 127/75; PULSE 82; RESP 18; TEMP 36.6; O2SAT 92; BMI 28.3
--- NOTE | 2020-12-08 16:39 | [facility].EDWNDL ---
ED Disposition Clinical Impression: Laceration of nose Qualifiers: Encounter type: initial encounter Qualified Code(s): S01.21XA - Laceration without foreign body of nose, initial encounter Disposition: Home, Self-Care Condition on Discharge: Good Instructions: DI for Laceration Repair Referrals: Ezequiel Wharton MD [Primary Care Provider] - - Critical Care Critical Care Time: No Attestation: On 12/08/20, the high probability of a clinically significant, sudden or life threatening deterioration of the following system(s) required my full and direct attention, intervention and personal management. The time I documented below is in addition to time spent performing reported procedures but includes the following listed in this critical care notation. Medical Decision Making - Medical Records Medical records reviewed: Yes: I reviewed the patient's medical records. - [place] Inquiry Pt receiving controlled substance: No Vital Signs: 12/08/20 16:07 Temperature 97.9 F Temperature Source Oral Pulse Rate [Left Radial] 82 Respiratory Rate 18 Blood Pressure [Right Arm] 127/75 Blood Pressure Mean [Right Arm] 92 Blood Pressure Source [Right Arm] Automatic Cuff Blood Pressure Position [Right Arm] Sitting 02 Sat by Pulse Oximetry 92 L Oxygen Delivery Method Room Air Orders (Tests/Meds): ED MEDICATIONS Discontinued Medications Generic Name Dose Route Start Last Admin Trade Name Freq PRN Reason Stop Dose Admin Ibuprofen 800 mg 12/08/20 16:20 Ibuprofen 400 Mg Tablet PO 12/08/20 16:21 ONCE ONE - Reevaluation(s) Time: 16:43 Reevaluation #1: Patient tolerated procedure well. Will require suture removal in 7 days. Given strict return precautions. Verbalized understanding. Medical Decision Narrative: 55-year-old male presented to the emergency department with a laceration to the nose. Patient will require suture repair. Up-to-date on tetanus. Patient does not require head CT based on [place] guidelines. Wound/Laceration HPI - General Chief Complaint: Wound/Laceration Stated Complaint: AO branch busted nose bleeding Time Seen by Provider: 12/08/20 16:10 Mode of Arrival: Ambulatory Limitations: No Limitations Description of Symptoms (Recalled from ER Triage Doc. by RN): limb on a tree fell and hit pt on the top of the nose, laceration noted - History of Present Illness HPI narrative: This is a 55-year-old male presented to the emergency department with a laceration on his nose. The patient was cutting some tree limbs when one snapped back and hit his nose. He has a laceration to the nose. Patient did not lose consciousness during the event. He is ambulatory. Patient is up-to-date on his tetanus normalization. Denies any headache or change in vision. No focal weakness. No chest pain or shortness of breath. No abdominal pain or vomiting. No diarrhea. - Related Data Previous Rx's Medication Instructions Recorded fluticasone propionate 50 50 mcg INTRANASAL DAILY #18.2 ml 07/17/19 mcg/actuation nasal spray,suspension metformin 1,000 mg tablet See Rx Instructions .ROUTE 03/28/20 .COMPLEX #180 tab cholecalciferol (vitamin D3) 25 25 mcg PO DAILY #90 cap 05/06/20 mcg (1,000 unit) capsule ergocalciferol (vitamin D2) 1,250 1,250 mcg PO WEEKLY #9 cap 05/06/20 mcg (50,000 unit) capsule bisoprolol 5 See Rx Instructions .ROUTE 08/08/20 mg-hydrochlorothiazide 6.25 mg .COMPLEX #180 tab tablet simvastatin 5 mg tablet See Rx Instructions .ROUTE 08/08/20 .COMPLEX #90 tab gabapentin 800 mg tablet 800 mg PO TID #90 tab 10/21/20 hydrocodone 5 mg-acetaminophen 325 1 tab PO TID PRN #90 tab 10/21/20 mg tablet albuterol sulfate 90 mcg/actuation See Rx Instructions .ROUTE 12/02/20 aerosol inhaler .COMPLEX #8.5 g apixaban 5 mg tablet See Rx Instructions .ROUTE 12/02/20 .COMPLEX #60 tab aspirin 81 mg tablet,delayed See Rx Instructions .ROUTE 12/02/20 release .COMPLEX #30
[2020-12-08 16:56] VITALS: BP 145/67; PULSE 80; RESP 20; TEMP 36.6; O2SAT 93
== END 2020-12-08 17:05 | disposition home or self-care (01) ==
PROVIDERS: Emergency Provider Emergency Medicine; PCP Emergency Medicine
DX: S01.21XA Laceration without foreign body of nose, initial encounter (principal); W20.8XXA Other cause of strike by thrown, projected or falling object, initial encounter; J44.9 Chronic obstructive pulmonary disease, unspecified; I25.10 Atherosclerotic heart disease of native coronary artery without angina pectoris; I73.9 Peripheral vascular disease, unspecified; E11.9 Type 2 diabetes mellitus without complications; E78.5 Hyperlipidemia, unspecified; I10 Essential (primary) hypertension; Z72.0 Tobacco use; Z80.9 Family history of malignant neoplasm, unspecified; Z80.8 Family history of malignant neoplasm of other organs or systems; Z83.3 Family history of diabetes mellitus
CPT/HCPCS: 12013; 99282

== ENCOUNTER → 2020-12-16 13:29 | Outpatient (CLI) | payer MEDICAID, SELFPAY ==
[2020-12-16 15:26] LABS: Amphetamine/Metha Screen,Urine Negative ng/ml (<1000); Barbiturates Screen,Urine Negative ng/ml (<200)
[2020-12-16 15:27] LABS: Benzodiazepines Screen,Urine Negative ng/ml (<200)
[2020-12-16 15:28] LABS: Cannabinoid Screen,Urine Negative ng/ml (<50); Cocaine Screen,Urine Negative ng/ml (<300)
[2020-12-16 15:29] LABS: Methadone Screen,Urine Negative ng/ml (<300)
[2020-12-16 15:30] LABS: Opiate Screen,Urine Positive ng/ml (<300); Phencyclidine Screen,Urine Negative ng/ml (<25)
== END ==
PROVIDERS: Visit Provider Emergency Medicine
DX: Z79.899 Other long term (current) drug therapy (principal)
CPT/HCPCS: 80305

== ENCOUNTER → 2021-02-12 14:25 | Outpatient (CLI) | payer MEDICAID, SELFPAY ==
[2021-02-12 15:09] LABS: Amphetamine/Metha Screen,Urine Negative ng/ml (<1000)
[2021-02-12 15:10] LABS: Barbiturates Screen,Urine Negative ng/ml (<200)
[2021-02-12 15:12] LABS: Benzodiazepines Screen,Urine Negative ng/ml (<200); Cannabinoid Screen,Urine Negative ng/ml (<50)
[2021-02-12 15:13] LABS: Cocaine Screen,Urine Negative ng/ml (<300)
[2021-02-12 15:14] LABS: Methadone Screen,Urine Negative ng/ml (<300); Opiate Screen,Urine Positive ng/ml (<300)
[2021-02-12 15:15] LABS: Phencyclidine Screen,Urine Negative ng/ml (<25)
== END ==
PROVIDERS: Visit Provider Emergency Medicine
DX: Z79.891 Long term (current) use of opiate analgesic (principal)
CPT/HCPCS: 80305

== ENCOUNTER → 2021-04-09 17:56 | Outpatient (CLI) | payer MEDICAID, SELFPAY ==
[2021-04-09 18:30] LABS: Amphetamine/Metha Screen,Urine Negative ng/ml (<1000)
[2021-04-09 18:31] LABS: Barbiturates Screen,Urine Negative ng/ml (<200)
[2021-04-09 18:33] LABS: Benzodiazepines Screen,Urine Negative ng/ml (<200); Cannabinoid Screen,Urine Negative ng/ml (<50)
[2021-04-09 18:34] LABS: Cocaine Screen,Urine Negative ng/ml (<300)
[2021-04-09 18:35] LABS: Methadone Screen,Urine Negative ng/ml (<300); Opiate Screen,Urine Positive ng/ml (<300)
[2021-04-09 18:36] LABS: Phencyclidine Screen,Urine Negative ng/ml (<25)
== END ==
PROVIDERS: Visit Provider Emergency Medicine
DX: Z79.899 Other long term (current) drug therapy (principal)
CPT/HCPCS: 80305

== ENCOUNTER → 2021-06-04 18:53 | Outpatient (CLI) | payer MEDICAID, SELFPAY ==
[2021-06-04 13:48] LABS: Chloride 99 mmol/L (98-107)
[2021-06-04 13:49] LABS: Potassium 4.8 mmoL/L (3.5-5.1); Sodium 134 mmol/L (136-145)
[2021-06-04 13:51] LABS: Alanine Aminotransferase 40 U/L (12-78); Anion Gap 11.8 mEq/L (5-15); Aspartate Amino Transferase 36 U/L (17-59); Blood Urea Nitrogen 17 mg/dl (9-20); Carbon Dioxide 28 mmol/L (22.0-30.0); Estimated Glomerular Filt Rate 101 ml/min (>60); GFR (African American) 122 ML/MIN (>60)
[2021-06-04 13:52] LABS: Albumin Level 4.4 g/dl (3.5-5.0); Albumin/Globulin Ratio 1.5 (1.1-1.8); Alkaline Phosphatase 86 U/L (38-126); Bilirubin,Total 0.6 mg/dl (0.2-1.3); Calcium 8.9 mg/dl (8.4-10.2); Chol/HDL Ratio 3.8 (1-3.5); Cholesterol 183 mg/dl (140-200); Globulin 2.9 g/dL (1.3-3.2); Glucose 106 mg/dl (74-100); HDL Cholesterol 48 mg/dl (40-60); Total Protein,Serum 7.3 g/dl (6.3-8.2); Triglycerides 155 mg/dl (30-150); VLDL Cholesterol 31 mg/dL (0-40)
[2021-06-04 14:00] LABS: Basophils # 0.1 K/mm3 (0-0.2); Basophils % 1.4 % (0.1-2.0); Eosinophils # 0.1 K/mm3 (0.0-0.4); Eosinophils % 0.9 % (0.1-12.0); Hematocrit 51.4 % (42.0-52.0); Hemoglobin 16.9 g/dL (14.1-18.0); Lymphocytes # 3.4 K/mm3 (0.7-4.5); Lymphocytes % 36.3 % (10-50); Mean Corpuscular HGB Conc 32.9 g/dL (31.8-35.4); Mean Corpuscular Hemoglobin 33.3 pg (27.0-31.2); Mean Corpuscular Volume 101.4 fl (80-94); Mean Platelet Volume 8.8 fl (7.4-10.4); Monocytes # 0.6 K/mm3 (0.1-1.0); Monocytes % 6.6 % (1.7-9.3); Neutrophils # 5.1 K/mm3 (1.8-7.8); Neutrophils % 54.7 % (37.0-80.0); Platelet Count 274 K/mm3 (142-424); Red Blood Count 5.07 M/mm3 (4.60-6.20); Red Cell Distribution Width 13.8 % (11.5-17.5); White Blood Count 9.3 K/mm3 (4.8-10.8)
[2021-06-04 14:10] LABS: Hemoglobin A1C 5.8 % (4.0-6.0)
[2021-06-04 14:20] LABS: Microalbumin < 6.000 mg/L (0-16.7)
[2021-06-04 14:23] LABS: Thyroid Stimulating Hormone 4.18 uIU/mL (0.465-4.68)
[2021-06-04 14:48] LABS: 25-OH Vitamin D, Total 37.1 ng/mL (30-100)
[2021-06-04 22:00] LABS: Prostate Specific Ag Screen 0.1 ng/ml (0.0-4.0)
[2021-06-05 04:35] LABS: Creatinine,Urine Random 5 mg/dL (Not Estab.)
[2021-06-05 13:48] LABS: Amphetamine/Metha Screen,Urine Negative ng/ml (<1000); Barbiturates Screen,Urine Negative ng/ml (<200)
[2021-06-05 13:49] LABS: Benzodiazepines Screen,Urine Negative ng/ml (<200)
[2021-06-05 13:50] LABS: Cannabinoid Screen,Urine Negative ng/ml (<50); Cocaine Screen,Urine Negative ng/ml (<300)
[2021-06-05 13:51] LABS: Methadone Screen,Urine Negative ng/ml (<300); Opiate Screen,Urine Negative ng/ml (<300)
[2021-06-05 13:52] LABS: Phencyclidine Screen,Urine Negative ng/ml (<25)
== END ==
PROVIDERS: Visit Provider Emergency Medicine
DX: R53.83 Other fatigue (principal); E11.9 Type 2 diabetes mellitus without complications; Z12.5 Encounter for screening for malignant neoplasm of prostate; Z79.84 Long term (current) use of oral hypoglycemic drugs; Z79.899 Other long term (current) drug therapy
CPT/HCPCS: 80053; 80061; 80305; 82043; 82306; 82570; 83036; 84439; 84443; 85025; G0103

== ENCOUNTER 2021-06-26 09:56 | Emergency (ER) | payer MEDICAID, SELFPAY ==
--- NOTE | 2021-06-26 10:29 | XR_ITS ---
FINAL REPORT CLINICAL HISTORY: sob, CHEST CONGESTION COMPARISON: 06/07/2016 FINDINGS: TWO-VIEW CHEST The heart size is normal. The mediastinum is normal. The lungs are clear. There is no pneumothorax. IMPRESSION: No acute cardiopulmonary process. Reviewed, Interpreted and Dictated by Eddie Matute MD Transcribed by Lyubov Rodriguez Authenticated by Eddie Matute MD on 06/26/2021 11:33:31 AM [facility]
[2021-06-26 10:30] VITALS: BP 140/89; PULSE 78; RESP 16; TEMP 36.7; O2SAT 93; BMI 30.9
--- NOTE | 2021-06-26 10:36 | HMH.EDUTC ---
[facility] [place] Clinical Impression: Acute bronchitis Qualifiers: Bronchitis organism: unspecified organism Qualified Code(s): J20.9 - Acute bronchitis, unspecified Disposition: Home, Self-Care Condition on Discharge: Good Instructions: DI for Acute Bronchitis Additional Instructions: Start antibiotic today. Be sure to complete entire prescription even if feeling better Tylenol and ibuprofen as needed for pain or fever Humidifier/vaporizer/hot steamy shower Follow-up with primary care tomorrow. Follow-up immediately in the ER of the [facility] for new or worsening symptoms or no noticeable improvement over the next 48-72 hours. Stop smoking Start steroids today. Helps with inflammation therefore coughing and wheezing. Follow directions on package. Prescriptions: predniSONE [Prednisone 20mg Tab] 20 mg PO BID #10 tab Transmission Status: Pending to [facility] Azithromycin [Zithromax 250mg tab] 250 mg PO DIRECTED #6 tab Transmission Status: Pending to [facility] Referrals: Ezequiel Wharton MD [Primary Care Provider] - Time of Disposition: 10:49 Medical Decision Making - [place] Inquiry Pt receiving controlled substance: No Vital Signs: 06/26/21 10:30 Temperature 98.1 F Temperature Source Oral Pulse Rate [Left] 78 Respiratory Rate 16 Blood Pressure [Right Arm] 140/89 Blood Pressure Mean [Right Arm] 106 02 Sat by Pulse Oximetry 93 L Orders (Tests/Meds): ORDERS Category Date Time Status Chest XR 2 view (NOT portable) [XR chest 2V] Stat Exams 06/26/21 10:29 Taken Covid-19 Nasal PCR ([facility]) Routine Lab 06/26/21 10:25 Re[place] [facility] [place] - General Chief complaint: Urgent [facility] Stated complaint: covid test Time Seen by Provider: 06/26/21 10:37 Mode of Arrival: Ambulatory Source of Information: Patient Limitations: No Limitations Description of Symptoms (Recalled from Triage Doc. by RN): pt c/o SOA, chest congestion and nasal congestion. x1wk HEENT Symptoms (Recalled from RN notes): Yes Resp Symptoms (Recalled from RN notes): Yes Skin Symptoms (Recalled from RN notes): No MS Symptoms (Recalled from RN notes): No Functional Status (Recalled from RN notes): wnl - History of Present Illness Provider Complaint: 56 yr old male c/o SOA, chest congestion, coughing up thick yellow/green sputum and nasal congestion. x1wk - Related Data Previous Rx's Medication Instructions Recorded metformin 1,000 mg tablet See Rx Instructions .ROUTE 03/28/20 .COMPLEX #180 tab bisoprolol 5 See Rx Instructions .ROUTE 08/08/20 mg-hydrochlorothiazide 6.25 mg .COMPLEX #180 tab tablet simvastatin 5 mg tablet See Rx Instructions .ROUTE 08/08/20 .COMPLEX #90 tab furosemide 20 mg tablet See Rx Instructions .ROUTE 04/08/21 .COMPLEX #30 tab aspirin 81 mg tablet,delayed See Rx Instructions .ROUTE 04/29/21 release .COMPLEX #30 tab cholecalciferol (vitamin D3) 25 25 mcg PO DAILY #90 cap 05/05/21 mcg (1,000 unit) capsule ergocalciferol (vitamin D2) 1,250 See Rx Instructions .ROUTE 05/23/21 mcg (50,000 unit) capsule .COMPLEX #4 cap albuterol sulfate 90 mcg/actuation See Rx Instructions .ROUTE 06/04/21 aerosol inhaler .COMPLEX #8.5 g apixaban 5 mg tablet See Rx Instructions .ROUTE 06/04/21 .COMPLEX #60 tab gabapentin 800 mg tablet 800 mg PO TID #90 tab 06/04/21 hydrocodone 5 mg-acetaminophen 325 1 tab PO TID PRN #90 tab 06/04/21 mg tablet lisinopril 10 mg tablet See Rx Instructions .ROUTE 06/04/21 .COMPLEX #60 tab spironolactone 25 mg tablet See Rx Instructions .ROUTE 06/04/21 .COMPLEX #30 tab umeclidinium 62.5 mcg-vilanterol See Rx Instructions .ROUTE 06/04/21 25 mcg/actuation powdr for .COMPLEX #60 each inhalation Azithromycin [Zithromax 250mg 250 mg PO DIRECTED #6 tab 06/26/21 tab] predniSONE [Prednisone 20mg 20 mg PO BID #10 tab 06/26/21 Tab] Allergies Allergy/AdvReac Type Severity Reaction Status Date / Time No Known All
[2021-06-26 11:01] VITALS: BP 140/89; PULSE 78; RESP 16; TEMP 36.7
== END 2021-06-26 11:05 | disposition home or self-care (01) ==
PROVIDERS: Emergency Provider Nurse Practitioner Family; PCP Emergency Medicine
DX: J02.9 Acute pharyngitis, unspecified (principal); I10 Essential (primary) hypertension; I25.10 Atherosclerotic heart disease of native coronary artery without angina pectoris; E78.5 Hyperlipidemia, unspecified; E11.9 Type 2 diabetes mellitus without complications; F17.210 Nicotine dependence, cigarettes, uncomplicated; Z20.822 Contact with and (suspected) exposure to COVID-19; Z79.01 Long term (current) use of anticoagulants; Z79.51 Long term (current) use of inhaled steroids; Z79.82 Long term (current) use of aspirin; Z79.84 Long term (current) use of oral hypoglycemic drugs; Z86.718 Personal history of other venous thrombosis and embolism
CPT/HCPCS: 71046; 99213; C9803; G0463; U0003; U0005

== ENCOUNTER → 2021-07-30 18:48 | Outpatient (CLI) | payer MEDICAID, SELFPAY ==
[2021-07-30 13:34] LABS: Amphetamine/Metha Screen,Urine Negative ng/ml (<1000); Barbiturates Screen,Urine Negative ng/ml (<200)
[2021-07-30 13:35] LABS: Benzodiazepines Screen,Urine Negative ng/ml (<200)
[2021-07-30 13:36] LABS: Cannabinoid Screen,Urine Negative ng/ml (<50); Methadone Screen,Urine Negative ng/ml (<300)
[2021-07-30 13:37] LABS: Cocaine Screen,Urine Negative ng/ml (<300)
[2021-07-30 13:38] LABS: Opiate Screen,Urine Positive ng/ml (<300); Phencyclidine Screen,Urine Negative ng/ml (<25)
== END ==
PROVIDERS: Visit Provider Emergency Medicine
DX: Z79.899 Other long term (current) drug therapy (principal)
CPT/HCPCS: 80305

== ENCOUNTER → 2021-11-14 18:31 | Outpatient (CLI) | payer MEDICAID, SELFPAY ==
[2021-11-14 21:52] LABS: Amphetamine/Metha Screen,Urine Negative ng/ml (<1000); Barbiturates Screen,Urine Negative ng/ml (<200)
[2021-11-14 21:53] LABS: Benzodiazepines Screen,Urine Negative ng/ml (<200); Cannabinoid Screen,Urine Negative ng/ml (<50)
[2021-11-14 21:54] LABS: Cocaine Screen,Urine Negative ng/ml (<300)
[2021-11-14 21:55] LABS: Methadone Screen,Urine Negative ng/ml (<300); Opiate Screen,Urine Positive ng/ml (<300)
[2021-11-14 21:56] LABS: Phencyclidine Screen,Urine Negative ng/ml (<25)
== END ==
PROVIDERS: PCP Nurse Practitioner Family; Visit Provider Nurse Practitioner Family
DX: Z79.891 Long term (current) use of opiate analgesic (principal)
CPT/HCPCS: 80305

== ENCOUNTER → 2022-02-11 14:47 | Outpatient (CLI) | payer MEDICAID, SELFPAY ==
[2022-02-11 15:25] LABS: Amphetamine/Metha Screen,Urine Negative ng/ml (<1000); Barbiturates Screen,Urine Negative ng/ml (<200)
[2022-02-11 15:26] LABS: Benzodiazepines Screen,Urine Negative ng/ml (<200)
[2022-02-11 15:27] LABS: Cannabinoid Screen,Urine Negative ng/ml (<50)
[2022-02-11 15:28] LABS: Cocaine Screen,Urine Negative ng/ml (<300); Methadone Screen,Urine Negative ng/ml (<300)
[2022-02-11 15:29] LABS: Opiate Screen,Urine Positive ng/ml (<300)
[2022-02-11 15:30] LABS: Phencyclidine Screen,Urine Negative ng/ml (<25)
== END ==
PROVIDERS: PCP Nurse Practitioner Family; Visit Provider Nurse Practitioner Family
DX: Z79.899 Other long term (current) drug therapy (principal)
CPT/HCPCS: 80305

== ENCOUNTER → 2022-07-02 15:50 | Outpatient (CLI) | payer MEDICAID, SELFPAY ==
[2022-07-02 14:43] LABS: Barbiturates Screen,Urine Negative ng/ml (<200)
[2022-07-02 14:44] LABS: Benzodiazepines Screen,Urine Negative ng/ml (<200)
[2022-07-02 14:45] LABS: Amphetamine/Metha Screen,Urine Negative ng/ml (<1000); Cannabinoid Screen,Urine Negative ng/ml (<50)
[2022-07-02 14:46] LABS: Cocaine Screen,Urine Negative ng/ml (<300)
[2022-07-02 14:47] LABS: Methadone Screen,Urine Negative ng/ml (<300); Opiate Screen,Urine Positive ng/ml (<300)
[2022-07-02 14:48] LABS: Phencyclidine Screen,Urine Negative ng/ml (<25)
[2022-07-02 15:00] LABS: Alanine Aminotransferase 54 U/L (12-78); Albumin Level 4.5 g/dl (3.5-5.0); Albumin/Globulin Ratio 1.6 (1.1-1.8); Alkaline Phosphatase 94 U/L (38-126); Anion Gap 13.2 mEq/L (5-15); Aspartate Amino Transferase 41 U/L (17-59); Bilirubin,Total 0.4 mg/dl (0.2-1.3); Blood Urea Nitrogen 19 mg/dl (9-20); Calcium 9.1 mg/dl (8.4-10.2); Carbon Dioxide 28 mmol/L (22.0-30.0); Chloride 95 mmol/L (98-107); Chol/HDL Ratio 3.9 (1-3.5); Cholesterol 169 mg/dl (140-200); Estimated Glomerular Filt Rate 100 ml/min (>60); GFR (African American) 121 ML/MIN (>60); Globulin 2.8 g/dL (1.3-3.2); Glucose 110 mg/dl (74-100); HDL Cholesterol 43 mg/dl (40-60); Potassium 5.2 mmoL/L (3.5-5.1); Sodium 131 mmol/L (136-145); Total Protein,Serum 7.3 g/dl (6.3-8.2); Triglycerides 214 mg/dl (30-150); VLDL Cholesterol 43 mg/dL (0-40)
[2022-07-02 15:11] LABS: Direct LDL Cholesterol 84.74 mg/dL (100-129)
[2022-07-02 15:33] LABS: Prostate Specific Ag Screen 0.1 ng/ml (0.0-4.0); Thyroid Stimulating Hormone 2.51 uIU/mL (0.465-4.68)
== END ==
PROVIDERS: PCP Nurse Practitioner Family; Visit Provider Nurse Practitioner Family
DX: E11.9 Type 2 diabetes mellitus without complications (principal); G89.29 Other chronic pain; E66.9 Obesity, unspecified; Z68.33 Body mass index [BMI] 33.0-33.9, adult; Z79.84 Long term (current) use of oral hypoglycemic drugs; Z79.899 Other long term (current) drug therapy; Z12.5 Encounter for screening for malignant neoplasm of prostate
CPT/HCPCS: 80053; 80061; 80305; 83036; 84443; G0103

== ENCOUNTER 2022-12-28 08:43 | Emergency (ER) | payer MEDICAID, SELFPAY ==
--- NOTE | 2022-12-28 08:54 | XR_ITS ---
FINAL REPORT CLINICAL HISTORY: pain COMPARISON: None FINDINGS: AP, oblique, and lateral views of the left elbow were obtained. There is no prior exam for comparison. There is no acute fracture or dislocation. Joint space is preserved. There is no joint effusion or other soft tissue abnormality. IMPRESSION: No acute osseous abnormality of the left elbow. Reviewed, Interpreted and Dictated by Ramiro Carrasco III, MD Transcribed by Fanny Rivas Authenticated and . [facility]
--- NOTE | 2022-12-28 08:54 | XR_ITS ---
FINAL REPORT CLINICAL HISTORY: pain COMPARISON: None FINDINGS: 2 views of the left forearm were obtained. There is no acute fracture or dislocation. The joints are intact. There are no soft tissue abnormalities. IMPRESSION: No acute process. Reviewed, Interpreted and Dictated by Ramiro Carrasco III, MD Transcribed by Fanny Rivas Authenticated and . [facility]
[2022-12-28 08:55] VITALS: BP 135/97; PULSE 66; RESP 22; TEMP 36.8; O2SAT 95; BMI 31.6
--- NOTE | 2022-12-28 08:58 | EXP.UTC ---
Discharge Plan Disposition Patient Disposition: Home, Self-Care Condition: Good Prescriptions Prescriptions: New methylprednisolone 4 mg Tablets,Dose Pack 4 mg PO DIRECTED Qty: 21 0RF No Action gabapentin 800 mg tablet 800 mg PO TID Qty: 90 2RF metformin 1,000 mg tablet See Rx Instructions .ROUTE .COMPLEX Qty: 180 3RF Dose Instruction: TAKE ONE TABLET BY MOUTH 2 TIMES A DAY Rx Instructions: TAKE ONE TABLET BY MOUTH 2 TIMES A DAY albuterol sulfate [ProAir HFA] 90 mcg/actuation HFA aerosol inhaler See Rx Instructions .ROUTE .COMPLEX Qty: 8.5 3RF Dose Instruction: INHALE 2 PUFFS BY MOUTH EVERY 6 HOURS NEEDED Rx Instructions: INHALE 2 PUFFS BY MOUTH EVERY 6 HOURS NEEDED Anoro Ellipta 62.5-25 mcg/actuation blister with device See Rx Instructions .ROUTE .COMPLEX Qty: 60 2RF Dose Instruction: INHALE 1 PUFF BY MOUTH ONCE A DAY Rx Instructions: INHALE 1 PUFF BY MOUTH ONCE A DAY fluticasone propionate [Flonase Allergy Relief] 50 mcg/actuation spray,suspension 2 spray intranasal DAILY Qty: 16 2RF Rx Instructions: administer into each nostril Eliquis 5 mg tablet See Rx Instructions .ROUTE .COMPLEX Qty: 60 5RF Dose Instruction: TAKE ONE TABLET BY MOUTH 2 TIMES A DAY FOR BLOOD THINNER Rx Instructions: TAKE ONE TABLET BY MOUTH 2 TIMES A DAY FOR BLOOD THINNER cholecalciferol (vitamin D3) 25 mcg (1,000 unit) tablet See Rx Instructions .ROUTE .COMPLEX Qty: 90 3RF Dose Instruction: TAKE ONE TABLET BY MOUTH ONCE A DAY Rx Instructions: TAKE ONE TABLET BY MOUTH ONCE A DAY ergocalciferol (vitamin D2) 1,250 mcg (50,000 unit) capsule See Rx Instructions .ROUTE .COMPLEX Qty: 12 2RF Dose Instruction: TAKE ONE CAPSULE BY MOUTH EVERY WEEK Rx Instructions: TAKE ONE CAPSULE BY MOUTH EVERY WEEK bisoprolol-hydrochlorothiazide 5-6.25 mg tablet See Rx Instructions .ROUTE .COMPLEX Qty: 180 2RF Dose Instruction: TAKE ONE TABLET BY MOUTH 2 TIMES A DAY FOR HIGH BLOOD PRESSURE Rx Instructions: TAKE ONE TABLET BY MOUTH 2 TIMES A DAY FOR HIGH BLOOD PRESSURE lisinopril 10 mg tablet See Rx Instructions .ROUTE .COMPLEX Qty: 90 2RF Dose Instruction: TAKE ONE TABLET BY MOUTH 2 TIMES A DAY FOR HYPERTENSION Rx Instructions: TAKE ONE TABLET BY MOUTH 2 TIMES A DAY FOR HYPERTENSION simvastatin 5 mg tablet See Rx Instructions .ROUTE .COMPLEX Qty: 90 3RF Dose Instruction: TAKE ONE TABLET BY MOUTH EVERY DAY Rx Instructions: TAKE ONE TABLET BY MOUTH EVERY DAY spironolactone 25 mg tablet See Rx Instructions .ROUTE .COMPLEX Qty: 90 2RF Dose Instruction: TAKE ONE TABLET BY MOUTH ONCE A DAY FOR EDEMA Rx Instructions: TAKE ONE TABLET BY MOUTH ONCE A DAY FOR EDEMA furosemide 20 mg tablet See Rx Instructions .ROUTE .COMPLEX Qty: 90 2RF Dose Instruction: TAKE ONE TABLET BY MOUTH ONCE A DAY FOR EDEMA Rx Instructions: TAKE ONE TABLET BY MOUTH ONCE A DAY FOR EDEMA aspirin 81 mg tablet,delayed release (DR/EC) See Rx Instructions .ROUTE .COMPLEX Qty: 30 2RF Dose Instruction: TAKE ONE TABLET BY MOUTH ONCE A DAY FOR HEART DISEASE Rx Instructions: TAKE ONE TABLET BY MOUTH ONCE A DAY FOR HEART DISEASE hydrocodone-acetaminophen 5-325 mg tablet 1 tab PO TID PRN (Reason: pain) Qty: 90 0RF Referrals Follow up/Referrals: Scott Person APRN [Primary Care Provider] - See instructions Artie Santamaria DO [Staff Physician] - See instructions Activity Restrictions/Add. Instructions Additional Instructions/Restrictions: Rest the extremity, Wear the lencho wrap for compression, Elevate the extremity as tolerated while you are resting. Take the medications as directed. Follow up with Dr. Santamaria (orthopedics) if you continue to have symptoms. I put in a referral but you need to call his office and schedule an appointment. Follow up with cristin
[2022-12-28 09:26] VITALS: BP 135/97; PULSE 66; RESP 22; TEMP 36.8; O2SAT 95
== END 2022-12-28 09:33 | disposition home or self-care (01) ==
PROVIDERS: Emergency Provider Nurse Practitioner Family; PCP Nurse Practitioner Family
DX: M67.824 Other specified disorders of tendon, left elbow (principal); M25.522 Pain in left elbow; F17.210 Nicotine dependence, cigarettes, uncomplicated; E11.9 Type 2 diabetes mellitus without complications; Z79.84 Long term (current) use of oral hypoglycemic drugs
CPT/HCPCS: 73080; 73090; 99212; 99214; G0463

== ENCOUNTER 2023-02-08 10:34 | Emergency (ER) | payer MEDICAID, SELFPAY ==
[2023-02-08 11:15] VITALS: BP 113/61; PULSE 62; RESP 18; TEMP 36.6; O2SAT 99; BMI 33.0
--- NOTE | 2023-02-08 11:28 | EXP.UTC ---
Discharge Plan Disposition Patient Disposition: Home, Self-Care Condition: Good Prescriptions Prescriptions: New amoxicillin-pot clavulanate 875-125 mg Tablet 1 tab PO Q12H Qty: 20 0RF No Action gabapentin 800 mg tablet 800 mg PO TID Qty: 90 2RF metformin 1,000 mg tablet See Rx Instructions .ROUTE .COMPLEX Qty: 180 3RF Dose Instruction: TAKE ONE TABLET BY MOUTH 2 TIMES A DAY Rx Instructions: TAKE ONE TABLET BY MOUTH 2 TIMES A DAY albuterol sulfate [ProAir HFA] 90 mcg/actuation HFA aerosol inhaler See Rx Instructions .ROUTE .COMPLEX Qty: 8.5 3RF Dose Instruction: INHALE 2 PUFFS BY MOUTH EVERY 6 HOURS NEEDED Rx Instructions: INHALE 2 PUFFS BY MOUTH EVERY 6 HOURS NEEDED Eliquis 5 mg tablet See Rx Instructions .ROUTE .COMPLEX Qty: 60 5RF Dose Instruction: TAKE ONE TABLET BY MOUTH 2 TIMES A DAY FOR BLOOD THINNER Rx Instructions: TAKE ONE TABLET BY MOUTH 2 TIMES A DAY FOR BLOOD THINNER cholecalciferol (vitamin D3) 25 mcg (1,000 unit) tablet See Rx Instructions .ROUTE .COMPLEX Qty: 90 3RF Dose Instruction: TAKE ONE TABLET BY MOUTH ONCE A DAY Rx Instructions: TAKE ONE TABLET BY MOUTH ONCE A DAY ergocalciferol (vitamin D2) 1,250 mcg (50,000 unit) capsule See Rx Instructions .ROUTE .COMPLEX Qty: 12 2RF Dose Instruction: TAKE ONE CAPSULE BY MOUTH EVERY WEEK Rx Instructions: TAKE ONE CAPSULE BY MOUTH EVERY WEEK bisoprolol-hydrochlorothiazide 5-6.25 mg tablet See Rx Instructions .ROUTE .COMPLEX Qty: 180 2RF Dose Instruction: TAKE ONE TABLET BY MOUTH 2 TIMES A DAY FOR HIGH BLOOD PRESSURE Rx Instructions: TAKE ONE TABLET BY MOUTH 2 TIMES A DAY FOR HIGH BLOOD PRESSURE lisinopril 10 mg tablet See Rx Instructions .ROUTE .COMPLEX Qty: 90 2RF Dose Instruction: TAKE ONE TABLET BY MOUTH 2 TIMES A DAY FOR HYPERTENSION Rx Instructions: TAKE ONE TABLET BY MOUTH 2 TIMES A DAY FOR HYPERTENSION simvastatin 5 mg tablet See Rx Instructions .ROUTE .COMPLEX Qty: 90 3RF Dose Instruction: TAKE ONE TABLET BY MOUTH EVERY DAY Rx Instructions: TAKE ONE TABLET BY MOUTH EVERY DAY spironolactone 25 mg tablet See Rx Instructions .ROUTE .COMPLEX Qty: 90 2RF Dose Instruction: TAKE ONE TABLET BY MOUTH ONCE A DAY FOR EDEMA Rx Instructions: TAKE ONE TABLET BY MOUTH ONCE A DAY FOR EDEMA furosemide 20 mg tablet See Rx Instructions .ROUTE .COMPLEX Qty: 90 2RF Dose Instruction: TAKE ONE TABLET BY MOUTH ONCE A DAY FOR EDEMA Rx Instructions: TAKE ONE TABLET BY MOUTH ONCE A DAY FOR EDEMA hydrocodone-acetaminophen 5-325 mg tablet 1 tab PO TID PRN (Reason: pain) Qty: 90 0RF fluticasone propionate 50 mcg/actuation spray,suspension See Rx Instructions .ROUTE .COMPLEX Qty: 16 0RF Dose Instruction: USE 2 SPRAYS IN EACH NOSTRIL ONCE A DAY Rx Instructions: USE 2 SPRAYS IN EACH NOSTRIL ONCE A DAY aspirin 81 mg tablet,delayed release (DR/EC) See Rx Instructions .ROUTE .COMPLEX Qty: 30 0RF Dose Instruction: TAKE ONE TABLET BY MOUTH ONCE A DAY FOR HEART DISEASE Rx Instructions: TAKE ONE TABLET BY MOUTH ONCE A DAY FOR HEART DISEASE Anoro Ellipta 62.5-25 mcg/actuation blister with device See Rx Instructions .ROUTE .COMPLEX Qty: 60 3RF Dose Instruction: INHALE 1 PUFF BY MOUTH ONCE A DAY Rx Instructions: INHALE 1 PUFF BY MOUTH ONCE A DAY methylprednisolone 4 mg Tablets,Dose Pack 4 mg PO DIRECTED Qty: 21 0RF Referrals Follow up/Referrals: Scott Person APRN [Primary Care Provider] - See instructions Activity Restrictions/Add. Instructions Additional Instructions/Restrictions: Take tylenol pain. Take the medications as directed. Follow up with your regular doctor. Follow up with a dentist. GO TO THE ER FOR ANY WORSENING SYMPTOMS Clinical Impressions Clinical Impression: Pain, dental, Absces
[2023-02-08 11:57] VITALS: BP 113/61; PULSE 62; RESP 18; TEMP 36.6; O2SAT 99
== END 2023-02-08 11:57 | disposition home or self-care (01) ==
PROVIDERS: Emergency Provider Nurse Practitioner Family; PCP Nurse Practitioner Family
DX: K04.7 Periapical abscess without sinus (principal); F17.210 Nicotine dependence, cigarettes, uncomplicated; E11.9 Type 2 diabetes mellitus without complications; Z79.84 Long term (current) use of oral hypoglycemic drugs
CPT/HCPCS: 99212; 99214; G0463

== ENCOUNTER → 2023-02-10 16:16 | Outpatient (CLI) | payer MEDICAID, SELFPAY ==
[2023-02-10 12:51] LABS: Benzodiazepines Screen,Urine Negative ng/ml (<200)
[2023-02-10 12:52] LABS: Amphetamine/Metha Screen,Urine Negative ng/ml (<1000)
[2023-02-10 12:53] LABS: Barbiturates Screen,Urine Negative ng/ml (<200); Cannabinoid Screen,Urine Negative ng/ml (<50)
[2023-02-10 12:54] LABS: Cocaine Screen,Urine Negative ng/ml (<300); Methadone Screen,Urine Negative ng/ml (<300)
[2023-02-10 12:55] LABS: Opiate Screen,Urine Positive ng/ml (<300)
[2023-02-10 12:56] LABS: Phencyclidine Screen,Urine Negative ng/ml (<25)
== END ==
PROVIDERS: PCP Nurse Practitioner Family; Visit Provider Nurse Practitioner Family
DX: Z79.891 Long term (current) use of opiate analgesic (principal)
CPT/HCPCS: 80305

== ENCOUNTER 2023-04-07 12:57 | Outpatient (CLI) | payer MEDICAID, SELFPAY ==
[2023-04-07 17:00] LABS: Amphetamine/Metha Screen,Urine Negative ng/ml (<1000)
[2023-04-07 17:01] LABS: Barbiturates Screen,Urine Negative ng/ml (<200); Benzodiazepines Screen,Urine Negative ng/ml (<200)
[2023-04-07 17:02] LABS: Cannabinoid Screen,Urine Negative ng/ml (<50); Cocaine Screen,Urine Negative ng/ml (<300)
[2023-04-07 17:03] LABS: Methadone Screen,Urine Negative ng/ml (<300)
[2023-04-07 17:04] LABS: Opiate Screen,Urine Positive ng/ml (<300); Phencyclidine Screen,Urine Negative ng/ml (<25)
[2023-04-11 17:23] LABS: Gabapentin,Urine 91.1 ug/mL (.)
[2023-04-13 09:37] LABS: Codeine Negative (Cutoff=100); Hydrocodone Positive (.); Hydrocodone Confirm 177 ng/mL (Cutoff=100); Hydromorphone Positive (.); Hydromorphone Confirm 230 ng/mL (Cutoff=100); Morphine Negative (Cutoff=100); Opiates Positive (.)
== END 2023-04-07 23:59 ==
LOC: LAB.DROPOF 12:57
PROVIDERS: PCP Nurse Practitioner Family; Visit Provider Nurse Practitioner Family
DX: Z79.899 Other long term (current) drug therapy (principal); G62.9 Polyneuropathy, unspecified
CPT/HCPCS: 80307; 80361; G0480

== ENCOUNTER 2023-05-13 09:25 | Emergency (ER) | payer MEDICAID, SELFPAY ==
[2023-05-13 09:40] VITALS: BP 152/87; PULSE 67; RESP 18; TEMP 36.7; O2SAT 94; BMI 30.7
--- NOTE | 2023-05-13 09:46 | EXP.UTC ---
Discharge Plan Disposition Patient Disposition: Home, Self-Care Condition: Good Prescriptions Prescriptions: New clindamycin HCl 300 mg capsule 300 mg PO Q8H Qty: 30 0RF ciprofloxacin HCl [Cipro] 500 mg tablet 500 mg PO BID 10 Days Qty: 20 0RF mupirocin 2 % ointment 1 applic topical TID 7 Days Qty: 22 0RF No Action gabapentin 800 mg tablet 800 mg PO TID Qty: 90 2RF metformin 500 mg tablet 500 mg PO BID Qty: 180 3RF albuterol sulfate [ProAir HFA] 90 mcg/actuation HFA aerosol inhaler See Rx Instructions .ROUTE .COMPLEX Qty: 8.5 3RF Dose Instruction: INHALE 2 PUFFS BY MOUTH EVERY 6 HOURS NEEDED Rx Instructions: INHALE 2 PUFFS BY MOUTH EVERY 6 HOURS NEEDED cholecalciferol (vitamin D3) 25 mcg (1,000 unit) tablet See Rx Instructions .ROUTE .COMPLEX Qty: 90 3RF Dose Instruction: TAKE ONE TABLET BY MOUTH ONCE A DAY Rx Instructions: TAKE ONE TABLET BY MOUTH ONCE A DAY ergocalciferol (vitamin D2) 1,250 mcg (50,000 unit) capsule See Rx Instructions .ROUTE .COMPLEX Qty: 12 2RF Dose Instruction: TAKE ONE CAPSULE BY MOUTH EVERY WEEK Rx Instructions: TAKE ONE CAPSULE BY MOUTH EVERY WEEK bisoprolol-hydrochlorothiazide 5-6.25 mg tablet See Rx Instructions .ROUTE .COMPLEX Qty: 180 2RF Dose Instruction: TAKE ONE TABLET BY MOUTH 2 TIMES A DAY FOR HIGH BLOOD PRESSURE Rx Instructions: TAKE ONE TABLET BY MOUTH 2 TIMES A DAY FOR HIGH BLOOD PRESSURE simvastatin 5 mg tablet See Rx Instructions .ROUTE .COMPLEX Qty: 90 3RF Dose Instruction: TAKE ONE TABLET BY MOUTH EVERY DAY Rx Instructions: TAKE ONE TABLET BY MOUTH EVERY DAY spironolactone 25 mg tablet See Rx Instructions .ROUTE .COMPLEX Qty: 90 2RF Dose Instruction: TAKE ONE TABLET BY MOUTH ONCE A DAY FOR EDEMA Rx Instructions: TAKE ONE TABLET BY MOUTH ONCE A DAY FOR EDEMA furosemide 20 mg tablet See Rx Instructions .ROUTE .COMPLEX Qty: 90 2RF Dose Instruction: TAKE ONE TABLET BY MOUTH ONCE A DAY FOR EDEMA Rx Instructions: TAKE ONE TABLET BY MOUTH ONCE A DAY FOR EDEMA Anoro Ellipta 62.5-25 mcg/actuation blister with device See Rx Instructions .ROUTE .COMPLEX Qty: 60 3RF Dose Instruction: INHALE 1 PUFF BY MOUTH ONCE A DAY Rx Instructions: INHALE 1 PUFF BY MOUTH ONCE A DAY lisinopril 10 mg tablet See Rx Instructions .ROUTE .COMPLEX Qty: 90 2RF Dose Instruction: TAKE ONE TABLET BY MOUTH 2 TIMES A DAY FOR HYPERTENSION Rx Instructions: TAKE ONE TABLET BY MOUTH 2 TIMES A DAY FOR HYPERTENSION fluticasone propionate 50 mcg/actuation spray,suspension See Rx Instructions .ROUTE .COMPLEX Qty: 16 1RF Dose Instruction: USE 2 SPRAYS IN EACH NOSTRIL ONCE A DAY Rx Instructions: USE 2 SPRAYS IN EACH NOSTRIL ONCE A DAY Eliquis 5 mg tablet See Rx Instructions .ROUTE .COMPLEX Qty: 60 0RF Dose Instruction: TAKE ONE TABLET BY MOUTH 2 TIMES A DAY FOR BLOOD THINNER Rx Instructions: TAKE ONE TABLET BY MOUTH 2 TIMES A DAY FOR BLOOD THINNER aspirin 81 mg tablet,delayed release (/EC) See Rx Instructions .ROUTE .COMPLEX Qty: 30 0RF Dose Instruction: TAKE ONE TABLET BY MOUTH ONCE A DAY FOR HEART DISEASE Rx Instructions: TAKE ONE TABLET BY MOUTH ONCE A DAY FOR HEART DISEASE hydrocodone-acetaminophen 5-325 mg tablet 1 tab PO TID PRN (Reason: pain) Qty: 90 0RF Referrals Follow up/Referrals: Scott Person APRN [Primary Care Provider] - See instructions Vane Jade DPM [Staff Physician] - See instructions Activity Restrictions/Add. Instructions Additional Instructions/Restrictions: Rest the extremity, Elevate the extremity as much time as tolerated help control the swelling to aid in circulation. Take tylenol for pain. Take all the antibiotics as directed and apply the topical medcation as directed. Follow up with Dr. Jade (podiatry). Since you are diabetic this could turn into a bad infection and possibly even result in osteomylitis (infection in the bones of your foot). So make sure you follow up with Dr. Jade. Follow up with your regular doctor also. GO TO THE ER FOR ANY WORSENING SYMPTOMS The wound culture result will be completed in 3 days. This will tell exactly what antibiotics you need to be on to treat the infection. Make sure you follow up with your primary care physician or here in 3 days to have the medications adjusted. Clinical Impressions Clinical Impression: Cellulitis, Wound infection, Diabetes, Diabetic neuropathy, Burn of foot, left, second degree Instructions Patient Instructions: DI for [place], DI for Cellulitis -- Adult, DI for Wound Infection, Clindamycin, Ceftriaxone Injection, Mupirocin, Ciprofloxacin Discharge ED Provider: Viktor Viramontes [facility] General Stated complaint: burn on L Foot Time Seen by Provider: 05/13/23 09:46 History of Present Illness Provider Complaint: He states that for the past 1 week he has had a burn on the top of his left foot. He states that he has severe diabetic neuropathy and diabetes. He does not know when the burn occurred, but he noticed it about 1 week ago. He came in today because the wound is getting more and more redness around it and it is beginning to have tannish drainage. His tetanus immunization is up to date. He denies any fever/chills/malaise. Related Data Previous Rx's Medication Instructions Recorded albuterol sulfate 90 mcg/actuation See Rx Instructions .Route 10/31/21 aerosol inhaler (ProAir HFA) .COMPLEX #8.5 grams bisoprolol 5 See Rx Instructions .Route 10/28/22 mg-hydrochlorothiazide 6.25 mg .COMPLEX #180 tabs tablet cholecalciferol (vitamin D3) 25 See Rx Instructions .Route 10/28/22 mcg (1,000 unit) tablet .COMPLEX #90 tabs ergocalciferol (vitamin D2) 1,250 See Rx Instructions .Route 10/28/22 mcg (50,000 unit) capsule .COMPLEX #12 caps furosemide 20 mg tablet See Rx Instructions .Route 10/28/22 .COMPLEX #90 tabs simvastatin 5 mg tablet See Rx Instructions .Route 10/28/22 .COMPLEX #90 tabs spironolactone 25 mg tablet See Rx Instructions .Route 10/28/22 .COMPLEX #90 tabs umeclidinium 62.5 mcg-vilanterol See Rx Instructions .Route 02/01/23 25 mcg/actuation powdr for .COMPLEX #60 ea inhalation (Anoro Ellipta) metformin 500 mg tablet 500 mg PO BID #180 tabs 02/10/23 lisinopril 10 mg tablet See Rx Instructions .Route 03/03/23 .COMPLEX #90 tabs fluticasone propionate 50 See Rx Instructions .Route 03/04/23 mcg/actuation nasal .COMPLEX #16 grams spray,suspension gabapentin 800 mg tablet 800 mg PO TID Pain #90 tabs 04/07/23 apixaban 5 mg tablet (Eliquis) See Rx Instructions .Route 05/03/23 .COMPLEX #60 tabs aspirin 81 mg tablet,delayed See Rx Instructions .Route 05/03/23 release .COMPLEX #30 tabs hydrocodone 5 mg-acetaminophen 325 1 tab PO TID PRN pain #90 tabs 05/04/23 mg tablet ciprofloxacin HCl 500 mg tablet 500 mg PO BID 10 days #20 tabs 05/13/23 (Cipro) clindamycin HCl 300 mg capsule 300 mg PO Q8H #30 caps 05/13/23 mupirocin 2 % topical ointment 1 applic topical TID 7 days #22 05/13/23 grams Allergies Allergy/AdvReac Type Severity Reaction Status Date / Time No Known Allergies Allergy Verified 05/13/23 10:02 [facility] Disclaimer: The information contained in this section may have been updated after the patient was seen, as this information can be updated by other users. Medical History (Updated 05/13/23 @ 10:44 by Viktor Viramontes APRN) Diabetes Hyponatremia Laceration of nose Social History Smoking Status: Current every day smoker tobacco type: cigarettes packs per day: 1 second hand exposure: Yes alcohol intake: never counseling provided: provider counseling substance use type: denies use current occupational status: disabled Travel in the last 8 weeks: None household members: spouse housing: house ROS Obtained: Yes All systems reviewed & no additional complaints except as documented Constitutional Constitutional: Denies chills and Denies fever(s) Eyes Eyes: Denies eye discharge ENT Ears, Nose, Mouth, and Throat: Denies dizziness, Denies otalgia and Denies sore throat Cardiovascular Cardiovascular: Denies chest pain Respiratory Respiratory: Denies shortness of breath, Denies chest congestion, Denies cough, Denies stridor and Denies wheezing Gastrointestinal Gastrointestingal: Denies nausea or vomiting Musculoskeletal Musculoskeletal: Reports system reviewed and no additional complaints, except as documented and Denies arthralgias Integumentary/Breasts Skin/Breast: Reports as per HPI, Reports redness and Reports wounds Neurologic Neurologic: Denies dizziness and Denies paresthesias Allergic/Immunologic Allergic/Immunologic: Denies wheezing Physical Exam General General appearance: alert and in no apparent distress Head Head exam: atraumatic, normocephalic and normal inspection Eye Eye exam: Present normal appearance, PERRL and EOMI ENT ENT exam: Present normal exam, normal oropharynx, mucous membranes moist, TM's normal bilaterally and normal external ear exam Neck Neck exam: Present normal inspection, full ROM and trachea midline; Absent meningismus or lymphadenopathy Chest Chest inspection: Present normal inspection and symmetric chest wall rise; Absent tenderness Respiratory Respiratory exam: Present normal lung sounds bilaterally; Absent respiratory distress Cardiovascular Cardiovascular exam: Present regular rate and normal rhythm; Absent JVD Abdominal Exam Abdominal exam: Present soft and normal bowel sounds; Absent distention, tenderness or guarding Extremities Exam Extremities exam: Present normal inspection, full ROM and normal capillary refill; Absent calf tenderness Back Exam Back exam: Present normal inspection; Absent tenderness Neurological Exam Neurological exam: Present alert and oriented X3 Psychiatric Psychiatric exam: Present normal affect and normal mood Skin Skin exam: Present other (on the top of his left foot near the base of his great toe there is a second degree burn that measures 2.5 cm diameter. It is surrounded with redness and it has a small amount of tannish drainage. there is no induration. ) Lymphatic Lymphatic Findings: no adenopathy Medical Decision Making Medical Records Medical records reviewed: No I reviewed the patient's medical records. [place] Inquiry Pt receiving controlled substance: No
[2023-05-13] MEDS: LIDOCAINE 1% 5ML PF VIAL IM (10:06)
[2023-05-13] MEDS: cefTRIAXone 1GM VIAL 1 GM IM (10:06)
--- NOTE | 2023-05-13 10:10 | XR_ITS ---
FINAL REPORT CLINICAL HISTORY: burn COMPARISON: 07/22/2017 FINDINGS: AP, oblique and lateral views of the left foot were obtained. There is no prior exam for comparison. There is no acute fracture or dislocation. There is mild multi joint degenerative disease, unchanged from previous. There is mild soft tissue edema of the dorsal forefoot. IMPRESSION: Mild soft tissue edema without acute osseous abnormality. Reviewed, Interpreted and Dictated by Lucia Grimm MD Transcribed by Lyubov Rodriguez Authenticated and [facility]
[2023-05-13 10:39] VITALS: BP 152/87; PULSE 67; RESP 18; TEMP 36.7; O2SAT 94
== END 2023-05-13 10:57 | disposition home or self-care (01) ==
PROVIDERS: Emergency Provider Nurse Practitioner Family; PCP Nurse Practitioner Family
DX: T25.222A Burn of second degree of left foot, initial encounter (principal); L03.116 Cellulitis of left lower limb; B96.89 Other specified bacterial agents as the cause of diseases classified elsewhere; E11.40 Type 2 diabetes mellitus with diabetic neuropathy, unspecified; F17.210 Nicotine dependence, cigarettes, uncomplicated; Z79.84 Long term (current) use of oral hypoglycemic drugs; X58.XXXA Exposure to other specified factors, initial encounter
CPT/HCPCS: 73630; 87070; 87205; 96372; 99212; 99214; G0463; J0696

== ENCOUNTER 2023-05-20 09:16 | Outpatient (CLI) | payer MEDICAID, SELFPAY ==
[2023-05-20 09:55] LABS: Basophils # 0.1 K/mm3 (0-0.2); Basophils % 1.2 % (0.1-2.0); Eosinophils # 0.1 K/mm3 (0.0-0.4); Eosinophils % 1.2 % (0.1-12.0); Hematocrit 54.6 % (42.0-52.0); Hemoglobin 17.7 g/dL (14.1-18.0); Lymphocytes # 2.8 K/mm3 (0.7-4.5); Lymphocytes % 29.7 % (10-50); Mean Corpuscular HGB Conc 32.5 g/dL (31.8-35.4); Mean Corpuscular Hemoglobin 33.2 pg (27.0-31.2); Mean Corpuscular Volume 102.2 fl (80-94); Mean Platelet Volume 7.6 fl (7.4-10.4); Monocytes # 0.6 K/mm3 (0.1-1.0); Monocytes % 6.2 % (1.7-9.3); Neutrophils # 5.8 K/mm3 (1.8-7.8); Neutrophils % 61.7 % (37.0-80.0); Platelet Count 223 K/mm3 (142-424); Red Blood Count 5.34 M/mm3 (4.60-6.20); Red Cell Distribution Width 13.9 % (11.5-17.5); White Blood Count 9.4 K/mm3 (4.8-10.8)
[2023-05-20 10:24] LABS: Hemoglobin A1C 6.2 % (4.0-6.0)
[2023-05-20 10:28] LABS: Alanine Aminotransferase 36 U/L (12-78); Albumin Level 4.4 g/dl (3.5-5.0); Albumin/Globulin Ratio 1.7 (1.1-1.8); Alkaline Phosphatase 80 U/L (38-126); Aspartate Amino Transferase 31 U/L (17-59); Bilirubin,Total 0.5 mg/dl (0.2-1.3); Blood Urea Nitrogen 16 mg/dl (9-20); Calcium 9.5 mg/dl (8.4-10.2); Carbon Dioxide 31 mmol/L (22.0-30.0); Chloride 98 mmol/L (98-107); Estimated Glomerular Filt Rate 88 ml/min (>60); GFR (African American) 106 ML/MIN (>60); Globulin 2.6 g/dL (1.3-3.2); Glucose 108 mg/dl (74-100); Sodium 135 mmol/L (136-145)
[2023-05-20 10:33] LABS: C-Reactive Protein 23.7 mg/L (0-4)
[2023-05-20 10:38] LABS: Erythrocyte Sedimentation Rate 1 mm/hr (0-20)
== END 2023-05-20 23:59 ==
LOC: LAB 09:17
PROVIDERS: PCP Nurse Practitioner Family; Visit Provider Podiatrist
DX: E11.621 Type 2 diabetes mellitus with foot ulcer (principal); L03.116 Cellulitis of left lower limb; T25.222A Burn of second degree of left foot, initial encounter; Z51.89 Encounter for other specified aftercare; Z72.0 Tobacco use; Z79.84 Long term (current) use of oral hypoglycemic drugs
CPT/HCPCS: 36415; 80053; 83036; 85025; 85651; 86140

== ENCOUNTER 2024-02-25 09:29 | Outpatient (CLI) | payer MEDICAID, SELFPAY ==
[2024-02-25 09:35] LABS: Microscopic, Urine URINE MICROSCOPIC (MICROSCOPIC)
[2024-02-25 10:37] LABS: Blood Urea Nitrogen 19 mg/dl (9-20); Estimated Glomerular Filt Rate 87 ml/min (>60); GFR (African American) 106 ML/MIN (>60)
[2024-02-25 11:14] LABS: Appearance,Urine CLEAR (Clear); Bilirubin,Urine Negative (Negative); Blood, Urine Negative (Negative); Color,Urine YELLOW (Yellow); Glucose,Urine (UA) Negative (Negative); Ketones,Urine Negative (Negative); Leukocyte Esterase,Urine Negative (Negative); Nitrate,Urine Negative (Negative); Protein,Urine Negative (Negative); Urobilinogen,Urine 0.2 EU/dl (0.2)
[2024-02-25 11:33] LABS: Squamous Epithelial Cell,Urine Occasional #/hpf (0-5)
[2024-02-26 11:10] LABS: FSH 7.5 mIU/mL (1.5-12.4)
== END 2024-02-25 23:59 | disposition home or self-care (01) ==
LOC: LAB 09:30
PROVIDERS: PCP Nurse Practitioner Family; Visit Provider Urology
DX: N40.0 Benign prostatic hyperplasia without lower urinary tract symptoms (principal); R33.9 Retention of urine, unspecified
CPT/HCPCS: 36415; 81001; 82565; 83001; 84520; 87086

== ENCOUNTER 2024-05-02 09:44 | Outpatient (CLI) | payer MEDICAID, SELFPAY ==
--- NOTE | 2024-05-02 09:44 | MR_ITS ---
FINAL REPORT TECHNIQUE: Multiplanar and multisequence imaging of the cervical spine was obtained. CLINICAL HISTORY: Neck pain. right arm pain to elbow FINDINGS: Alignment is normal. Vertebral body height is preserved. Signal intensity within the substance of the spinal cord is normal. There is a small hemangioma within the C6 vertebral body. No acute paraspinal abnormality. C2/3: Bilateral facet osteoarthropathy with mild bilateral neuroforaminal narrowing. C3/4: Prominent facet osteoarthropathy with severe bilateral neuroforaminal narrowing. C4/5: An annular disc bulge is present with degenerative endplate changes and facet osteoarthropathy. Mild central stenosis and severe bilateral neuroforaminal narrowing. C5/6: An annular disc bulge is present with degenerative endplate changes and facet osteoarthropathy. Moderate central stenosis, asymmetric to the right with severe bilateral neuroforaminal narrowing. C6/7: An annular disc bulge with mild bilateral neuroforaminal narrowing. C7/T1: There is no focal disc herniation, central stenosis or neural foraminal narrowing. IMPRESSION: Multilevel degenerative disc disease, most pronounced at C5-6. Reviewed, Interpreted and Dictated by Lucia Grimm MD Transcribed by Lyubov Rodriguez Authenticated and [facility]
== END 2024-05-02 23:59 | disposition home or self-care (01) ==
LOC: RAD 09:44
PROVIDERS: PCP Nurse Practitioner Family; Visit Provider Nurse Practitioner Family
DX: M48.02 Spinal stenosis, cervical region (principal); G95.9 Disease of spinal cord, unspecified
CPT/HCPCS: 72141

== ENCOUNTER 2024-07-12 08:32 | Outpatient (CLI) | payer MEDICAID, SELFPAY ==
[2024-07-12 18:19] LABS: Basophils # 0.1 K/mm3 (0-0.2); Basophils % 0.5 % (0.1-2.0); Eosinophils # 0.1 Kmm3 (0.0-0.4); Eosinophils % 1.1 % (0.1-12.0); Hematocrit 59.5 % (42.0-52.0); Lymphocytes # 3.5 K/mm3 (0.7-4.5); Lymphocytes % 35.3 % (10-50); Mean Corpuscular HGB Conc 32.8 g/dL (31.8-35.4); Mean Corpuscular Hemoglobin 32.2 pg (27.0-31.2); Mean Corpuscular Volume 98.3 fl (80-94); Mean Platelet Volume 9.7 fl (7.4-10.4); Monocytes # 0.8 K/mm3 (0.1-1.0); Monocytes % 8.2 % (1.7-9.3); Neutrophils # 5.4 K/mm3 (1.8-7.8); Neutrophils % 54.6 % (37.0-80.0); Nucleated Red Blood Cells # 0 10^3/uL; Nucleated Red Blood Cells % 0 %; Platelet Count 207 K/mm3 (142-424); Red Blood Count 6.05 M/mm3 (4.60-6.20); Red Cell Distribution Width 15.8 % (11.5-17.5); Red Cell Distribution Width-SD 54.8 fL
[2024-07-12 18:34] LABS: Hemoglobin 19.8 g/dL (14.1-18.0)
[2024-07-12 18:46] LABS: Alanine Aminotransferase 30 U/L (12-78); Albumin Level 4.6 g/dl (3.5-5.0); Albumin/Globulin Ratio 1.6 (1.1-1.8); Alkaline Phosphatase 86 U/L (38-126); Anion Gap 12.2 mEq/L (5-15); Aspartate Amino Transferase 29 U/L (17-59); Bilirubin,Total 0.8 mg/dl (0.2-1.3); Blood Urea Nitrogen 16 mg/dl (9-20); Carbon Dioxide 34 mmol/L (22.0-30.0); Chloride 90 mmol/L (98-107); Chol/HDL Ratio 3.6 (1-3.5); Cholesterol 127 mg/dl (140-200); Estimated Glomerular Filt Rate 87 ml/min (>60); GFR (African American) 105 ML/MIN (>60); Globulin 2.9 g/dL (1.3-3.2); Glucose 79 mg/dl (74-100); HDL Cholesterol 35 mg/dl (40-60); Potassium 5.2 mmoL/L (3.5-5.1); Sodium 131 mmol/L (136-145); Total Protein,Serum 7.5 g/dl (6.3-8.2); Triglycerides 130 mg/dl (30-150); VLDL Cholesterol 26 mg/dL (0-40)
[2024-07-12 18:58] LABS: Direct LDL Cholesterol 68.75 mg/dL (100-129)
[2024-07-12 19:00] LABS: 25-OH Vitamin D, Total 62.3 ng/mL (30-100)
[2024-07-12 19:18] LABS: Thyroid Stimulating Hormone 2.53 uIU/mL (0.465-4.68)
== END 2024-07-12 23:59 | disposition home or self-care (01) ==
LOC: LAB.DROPOF 07-14 08:33
PROVIDERS: PCP Nurse Practitioner Family; Visit Provider Nurse Practitioner Family
DX: E11.42 Type 2 diabetes mellitus with diabetic polyneuropathy (principal); Z79.84 Long term (current) use of oral hypoglycemic drugs; M54.2 Cervicalgia; M54.50 Low back pain, unspecified; Z79.891 Long term (current) use of opiate analgesic; E66.9 Obesity, unspecified; Z68.34 Body mass index [BMI] 34.0-34.9, adult; J44.9 Chronic obstructive pulmonary disease, unspecified
CPT/HCPCS: 80053; 80061; 82306; 83036; 84443; 85025